=== PATIENT | female | born 1980 | race Caucasian/White ===

== ENCOUNTER → 2020-06-04 | Outpatient (CLI) | payer BC | LOC: OD 15:37 | PROVIDERS: ATTEND Radiology Radiation Oncology | DX: C50.811 Malignant neoplasm of overlapping sites of right female breast (principal) | CPT/HCPCS: 36415; 84703 ==

== ENCOUNTER → 2020-06-05 | Outpatient (CLI) | payer BC ==
--- NOTE | 2020-06-06 15:09 | XCELERA REPORT ---
[address] [address] Transthoracic Echocardiogram Report Name: DONNA WERNER Age: 40 yrs Gender: Female : 1980 Patient Status: Outpatient Patient Location: RAD Study Date: 06/05/2020 01:43 PM Height: 66 in Weight: 160 lb BSA: 1.8 m2 Procedure: A two-dimensional transthoracic echocardiogram with color flow and Doppler was performed. Study Quality: Good. Reason For Study: CHEMOTHERAPY(Z51.11) History: CHEMOTHERAPY(Z51.11). Ordering Physician: TOMA YU Performed By: Sherry Lozano Interpretation Summary The left ventricle is normal in size. There is normal left ventricular wall thickness. LV EF is > than 60% Left ventricular systolic function is normal. Doppler measurements suggest normal left ventricular diastolic function The left ventricular wall motion is normal. There is no thrombus. No ASD , VSD , or PFO. The right ventricle is normal in size and function. The right atrium is normal. The left atrial size is normal. There is no evidence of mitral valve prolapse. There is no vegetation seen on the mitral valve. There is no mitral valve stenosis. There is a trace amount of mitral regurgitation There is no aortic valvular vegetation. There is no aortic valve stenosis There is no LVOT obstruction. No aortic regurgitation is present. There is no tricuspid stenosis. There is a trace amount of tricuspid regurgitation Right ventricular systolic pressure is at the upper limits of normal RVSP is 25 to 30 mm of Hg , with RA mean of 5 to 10. There is no pulmonic valvular stenosis. There is no pulmonic valvular regurgitation. The aortic root is normal size. The inferior vena cava appeared normal and decreased > 50% with respiration (RAP 5-10 mmHg) There is no pericardial effusion. MMode/2D Measurements & Calculations RVDd: 2.2 cm LVIDd: 4.6 cm FS: 32.5 % Ao root diam: 2.4 cm IVSd: 0.89 cm LVIDs: 3.1 cm EDV(Teich): 95.4 ml Ao root area: 4.5 cm2 LVPWd: 1.1 cm ESV(Teich): 37.2 ml EF(Teich): 61.0 % Doppler Measurements & Calculations MV E max agusto: MV dec slope: Ao V2 max: LV V1 max P.4 cm/sec 769.9 cm/sec2 135.6 cm/sec 3.4 mmHg MV A max agusto: MV dec time: 0.12 secAo max PG: LV V1 max: 86.5 cm/sec 7.4 mmHg 91.7 cm/sec MV E/A: 1.1 PA V2 max: TR max agusto: 75.2 cm/sec 226.4 cm/sec PA max P.3 mmHg TR max P.6 mmHg Left Ventricle The left ventricle is normal in size. There is normal left ventricular wall thickness. LV EF is > than 60%. Left ventricular systolic function is normal. Doppler measurements suggest normal left ventricular diastolic function. The left ventricular wall motion is normal. There is no thrombus. No ASD , VSD , or PFO. Right Ventricle The right ventricle is normal in size and function. Atria The right atrium is normal. The left atrial size is normal. Mitral Valve There is no evidence of mitral valve prolapse. There is no vegetation seen on the mitral valve. There is no mitral valve stenosis. There is a trace amount of mitral regurgitation. Aortic Valve There is no aortic valvular vegetation. There is no aortic valve stenosis. There is no LVOT obstruction. No aortic regurgitation is present. Tricuspid Valve There is no tricuspid stenosis. There is a trace amount of tricuspid regurgitation. Right ventricular systolic pressure is at the upper limits of normal. RVSP is 25 to 30 mm of Hg , with RA mean of 5 to 10. Pulmonic Valve There is no pulmonic valvular stenosis. There is no pulmonic valvular regurgitation. Great Vessels The aortic root is normal size. The inferior vena cava appeared normal and decreased > 50% with respiration (RAP 5-10 mmHg). Effusions There is no pericardial effusion. : TOMA YU, Kimberly
== END ==
LOC: EDBD → RAD 14:15
PROVIDERS: ATTEND Physician Assistant Medical
DX: Z08 Encounter for follow-up examination after completed treatment for malignant neoplasm (principal); C50.411 Malignant neoplasm of upper-outer quadrant of right female breast; Z79.899 Other long term (current) drug therapy
CPT/HCPCS: 93306

== ENCOUNTER → 2020-07-25 | Outpatient (CLI) | payer BC ==
--- NOTE | 2020-07-25 11:19 | WOMENS IMAGING REPORT ---
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 True lateral exaggerated CC views. Read with the assistance of CAD. .[facility] - R2 Photo Engraver Version 9.2 LIMITATIONS: None. FINDINGS: BREAST LATERALITY: left MASSES: No suspicious masses. CALCIFICATIONS: No new or suspicious calcifications. ARCHITECTURAL DISTORTION: None. ASYMMETRY: None noted. OTHER: No other significant findings. Ultrasound of the left breast was normal. IMPRESSION: No evidence of malignancy. BREAST DENSITY: b. There are scattered areas of fibroglandular density. BIRAD: ASSESSMENT: 1 Negative. RECOMMENDATION: RECOMMENDED FOLLOW UP: Birads 1 or 2: No breast imaging finding to explain the patie nt's presenting complaint. Further intervention should be based on the degree of clinical suspicion. SPECIFIC INTERVENTION/IMAGING/CONSULTATION RECOMMENDED:No additional intervention/ imaging/consultati on needed at this time. COMMUNICATION:The imaging findings were not discussed with the patient. Her referring provider has be en notified of the findings. COMMENT: The patient has been notified of the results by letter per SA requirements. Additional no tification policies are in place for contacting patient with suspicious or incomplete findings. Quality ID #225: The [employer] recommends an annual screening mammogram for women aged 40 years or over. This facility utilizes a reminder system to ensure that all patients receive reminder letters, and/or direct phone calls for appointments. This includes reminders for routine scr eening mammograms, diagnostic mammograms, or other Breast Imaging Interventions when appropriate. Th is patient will be placed in the appropriate reminder system. TECHNICAL DOCUMENTATION: FINDING NUMBER: (1) ASSESSMENT: (1) JOB ID: [id number] 2010 [employer]- All Rights Reserved Reading location - IP/workstation name: [email or web address]
--- NOTE | 2020-07-25 11:19 | WOMENS IMAGING REPORT ---
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 True lateral exaggerated CC views. Read with the assistance of CAD. .[facility] - R2 Figurine Maker Version 9.2 LIMITATIONS: None. FINDINGS: BREAST LATERALITY: left MASSES: No suspicious masses. CALCIFICATIONS: No new or suspicious calcifications. ARCHITECTURAL DISTORTION: None. ASYMMETRY: None noted. OTHER: No other significant findings. Ultrasound of the left breast was normal. IMPRESSION: No evidence of malignancy. BREAST DENSITY: b. There are scattered areas of fibroglandular density. BIRAD: ASSESSMENT: 1 Negative. RECOMMENDATION: RECOMMENDED FOLLOW UP: Birads 1 or 2: No breast imaging finding to explain the patie nt's presenting complaint. Further intervention should be based on the degree of clinical suspicion. SPECIFIC INTERVENTION/IMAGING/CONSULTATION RECOMMENDED:No additional intervention/ imaging/consultati on needed at this time. COMMUNICATION:The imaging findings were not discussed with the patient. Her referring provider has be en notified of the findings. COMMENT: The patient has been notified of the results by letter per SA requirements. Additional no tification policies are in place for contacting patient with suspicious or incomplete findings. Quality ID #225: The [employer] recommends an annual screening mammogram for women aged 40 years or over. This facility utilizes a reminder system to ensure that all patients receive reminder letters, and/or direct phone calls for appointments. This includes reminders for routine scr eening mammograms, diagnostic mammograms, or other Breast Imaging Interventions when appropriate. Th is patient will be placed in the appropriate reminder system. TECHNICAL DOCUMENTATION: FINDING NUMBER: (1) ASSESSMENT: (1) JOB ID: [id number] 2010 [employer]- All Rights Reserved Reading location - IP/workstation name: [email or web address]
--- OUTSIDE RECORDS SUMMARY | 2020-07-26 15:15 | XMS REPORT ---
:1980 [facility] [place] [facility] [place] [address] [place] [address] Care Team Providers Name Role Phone MIRZA FLOR Primary Care Physician Unavailable Eli Shoemaker Attending Clinician Unavailable RIAZ Attending Clinician Unavailable LULÚ HERNANDEZ Attending Clinician Unavailable BELEN MCCOLLUM Attending Clinician Unavailable LULÚ HERNANDEZ Attending Clinician Unavailable BELEN MCCOLLUM Attending Clinician Unavailable Allergies, Adverse Reactions, Alerts Allergy Name Allergy Status Severity Reaction(s) Onset Inactive Treat ing Comments Type Date Date Clinician Adhesive Propensity Active Other (See R edness to adverse Comments) 8-14 and reactions 00:00: burnin g to drug 00 Cephalexin Propensity Active Swelling 0 to adverse 3-27 reactions 00:00: to drug 00 Erythromycin Propensity Active Mild Nausea And 0 to adverse Vomiting 4-10 reactions 00:00: to drug 00 Erythromycin Propensity Active Low Nausea And 2018-0 to adverse Vomiting 4-10 reactions 00:00: 00 Erythromycin Allergy to Active Nausea/Vomit Base Drug ing/Diarrhea (Ingredient( (Finding) s): erythromycin ) Medications Ordered Filled Start Stop Current Ordering Indication Dosage Frequency Signature Comments Components Medication Medication Date Date Medication? Clinician (SIG) Name Name Silvadene 2019-09 Yes 1 - 00:00: 00 Ondansetron 2019-09 No 8mg Ondansetro HCl 0-23 n HCl 00:00: 00 Ado-Trastuz 2019-09 No 254mg Ado-Trastu umab 0-23 zumab Emtansine 00:00: Emtansine 00 Feraheme 2019-09 No 510mg Feraheme 0-15 00:00: 00 Sodium 2019- No 20mL Sodium Chloride 0-15 Chloride 00:00: 00 Sodium 2019-1 No 50mL Sodium Chloride 0-08 Chloride 00:00: 00 Feraheme 2019-09 2020- No 510mg Feraheme 0-08 10-15 00:00: 00:00 00 :00 Ondansetron 2019- No 8mg Ondansetro HCl 0-02 n HCl 00:00: 00 Ado-Trastuz 2019-09 No 257mg Ado-Trastu umab 0-02 zumab Emtansine 00:00: Emtansine 00 Hydration 2019-09 2020- No 1000mL 1000mL NS 0-02 10- 00:00: 00:00 00 :00 Sodium 2019-0 No 150mL Sodium Chloride 9-11 Chloride 00:00: 00 Ado-Trastuz Yes 254mg Ado-Trastu umab 9-11 zumab Emtansine 00:00: Emtansine 00 Ondansetron 2020- No 8mg Ondansetro HCl 9-11 10- n HCl 00:00: 00:00 00 :00 sulfamethox 2020- No [id number] Q.5D Take 2 azole-trime 05-08 09-05 tablets thoprim 00:00: 23:59 (320 mg of (BACTRIM 00 :00 trimethopr DS) 800-160 im total) mg tablet by mouth 2 (two) times daily for 10 days Pertuzumab No 420mg Pertuzumab 05-01 00:00: 00 Sodium 2019-0 No 80mL Sodium Chloride 819 Chloride 00:00: 00 Kanjinti No 424mg Kanjinti 05-01 00:00: 00 nitroGLYcer 2019- No [id number] .5[in_u Q.5D Place 0 .5 in 04-27 08-22 s] inches (NITROBID) 00:00: 23:59 onto the 2 % 00 :00 skin 2 ointment (two) times daily for 7 days Apply to the mastectomy skin twice daily mupirocin 2019- No Q.5D Apply (BACTROBAN) 04-26 08-21 topically 2 % 00:00: 23:59 2 (two) ointment 00 :00 times daily for 7 days Apply to incision and drain site twice daily nitroGLYcer 2019- No [id number] .5[in_u Q.5D Place 0 .5 in 8-14 08-15 s] inches (NITROBID) 00:00: 00:00 onto the 2 % 00 :00 skin 2 ointment (two) times daily for 7 days Apply to the mastectomy skin twice daily oxyCODONE 2019-0 2020- No 5mg Q6H Take 1 (ROXICODONE 04-24 tablet (5 ) 5 MG 00:00: 00:00 mg total) immediate 00 :00 by mouth release every 6 tablet (six) hours as needed for Pain for up to 30 doses acetaminoph 2019- 2020- No 650mg Q8H Take 1 en 04-24 tablet (TYLENOL) 00:00: 23:59 (650 mg 650 MG ER 00 :00 total) by tablet mouth every 8 (eight) hours as needed for Pain for up to 10 days ondansetron 2020- No 4mg Q8H Take 1 (ZOFRAN-ODT 04-24 tablet (4 ) 4 MG 00:00: 23:59 mg total) disintegrat 00 :00 by mouth ing tablet every 8 (eight) hours as needed for Nausea for up to 7 days ondansetron 0 2020- No 4mg Q6H Take 1 (ZOFRAN 04-23 tablet (4 ODT) 4 MG 00:00: 00:00 mg total) disintegrat 00 :00 by mouth ing tablet every 6 (six) hours as needed for Nausea oxyCODONE 2020- No 5mg Q4H Take 1 (ROXICODONE 04-23 tablet (5 ) 5 MG 00:00: 00:00 mg total) immediate 00 :00 by mouth release every 4 tablet (four) hours as needed for Pain docusate 2019-0 2020- No 100mg Q.5D Take 1 (COLACE) 04-23 capsule 100 MG 00:00: 23:59 (100 mg capsule 00 :00 total) by mouth 2 (two) times daily for 10 days LORazepam 2020-0 2020- No .5mg Q.[id number] Take 1 (ATIVAN) 04-23 [id number] tablet 0.5 MG 00:00: 23:59 3D (0.5 mg tablet 00 :00 total) by mouth 3 (three) times daily as needed for up to 5 days penicillin 2020-0 2020- No 500mg Q6H Take 500 v potassium 7-27 08-06 mg by 500 MG 00:00: 23:59 mouth tablet 00 :00 every 6 (six) hours For 10 days Pertuzumab 2020-0 No 420mg Pertuzumab 7-13 00:00: 00 Sodium 2020-0 No 120mL Sodium Chloride 7-13 Chloride 00:00: 00 Kanjinti 2020-0 No 416mg Kanjinti 7-13 00:00: 00 Palonosetro 2020-0 No .25mg Palonosetr n HCl 7-13 on HCl 00:00: 00 Dexamethaso 2020-0 No 20mg Dexamethas ne Sodium 7-13 one Sodium Phosphate 00:00: Phosphate 00 Famotidine 2020-0 No 20mg Famotidine 7-13 00:00: 00 CARBOplatin 2020-0 No 750mg CARBOplati 7-13 n 00:00: 00 Pertuzumab 2020-0 No 420mg Pertuzumab 6-22 00:00: 00 Sodium 2020-0 No 120mL Sodium Chloride 6-22 Chloride 00:00: 00 Kanjinti 2020-0 No 417mg Kanjinti 6-22 00:00: 00 Palonosetro 2020-0 No .25mg Palonosetr n HCl 6-22 on HCl 00:00: 00 Dexamethaso 2020-0 No 20mg Dexamethas ne Sodium 6-22 one Sodium Phosphate 00:00: Phosphate 00 Famotidine 2020-0 No 20mg Famotidine 6-22 00:00: 00 CARBOplatin 2020-0 No 750mg CARBOplati 6-22 n 00:00: 00 Pertuzumab 2020-0 No 420mg Pertuzumab 6-01 00:00: 00 Sodium 2020-0 No 120mL Sodium Chloride 6-01 Chloride 00:00: 00 Kanjinti 2020-0 No 411mg Kanjinti 6-01 00:00: 00 Palonosetro 2020-0 No .25mg Palonosetr n HCl 6-01 on HCl 00:00: 00 Dexamethaso 2020-0 No 20mg Dexamethas ne Sodium 6-01 one Sodium Phosphate 00:00: Phosphate 00 Famotidine 2020-0 No 20mg Famotidine 6-01 00:00: 00 CARBOplatin 2020-0 No 701mg CARBOplati 6-01 n 00:00: 00 ALPRAZolam 2020-0 Yes 1 6-01 00:00: 00 dexAMETHaso 2020-0 2020- No ne 5-29 - (DECADRON) 00:00: 00:00 4 MG tablet 00 :00 Diflucan 2020-0 2020- No 1 5-08 06-22 00:00: 09:29 00 :50 Pertuzumab 2020-0 No 420mg Pertuzumab 5-04 00:00: 00 Sodium 2020-0 No 120mL Sodium Chloride 5-04 Chloride 00:00: 00 Kanjinti 2020-0 No 409mg Kanjinti 5-04 00:00: 00 Palonosetro 2020-0 No .25mg Palonosetr n HCl 5-04 on HCl 00:00: 00 Dexamethaso 2020-0 No 20mg Dexamethas ne Sodium 5-04 one Sodium Phosphate 00:00: Phosphate 00 Famotidine 2020-0 No 20mg Famotidine 5-04 00:00: 00 CARBOplatin 2020-0 No 750mg CARBOplati 5-04 n 00:00: 00 Potassium 2020-0 2020- No 20meq Chloride ER 5-04 09-02 00:00: 00:00 00 :00 Pertuzumab 2020-0 No 420mg Pertuzumab 4-13 00:00: 00 Sodium 2020-0 No 120mL Sodium Chloride 4-13 Chloride 00:00: 00 Kanjinti 2020-0 No 405mg Kanjinti 4-13 00:00: 00 Palonosetro 2020-0 No .25mg Palonosetr n HCl 4-13 on HCl 00:00: 00 Dexamethaso 2020-0 No 20mg Dexamethas ne Sodium 4-13 one Sodium Phosphate 00:00: Phosphate 00 Famotidine 2020-0 No 20mg Famotidine 4-13 00:00: 00 CARBOplatin 2020-0 No 750mg CARBOplati 4-13 n 00:00: 00 Magic 2020-0 2020- No 10mL Mouthwash -02 - 00:00: 00:00 00 :00 Dexamethaso 2020-0 2020- No ne 4-02 - 00:00: 08:57 00 :16 Sodium 2020-0 Yes 20mL Sodium Chloride 3-23 Chloride 00:00: 00 Kanjinti 2020-0 2020- No 540mg Kanjinti 3-23 08-19 00:00: 00:00 00 :00 Pertuzumab 2019-0 2020- No 840mg Pertuzumab 12-03 00:00: 00:00 00 :00 Sodium 2019-0 2019- No 80mL Chloride 12-03 00:00: 00:00 00 :00 Dexamethaso 2019-0 2020- No 20mg Dexamethas ne Sodium 12-03 one Sodium Phosphate 00:00: 00:00 Phosphate 00 :00 DiphenhydrA 2019-0 2019- No 50mg MINE HCl 12-03 00:00: 00:00 00 :00 Famotidine 2019-0 2019- No 20mg Famotidine 12-03 00:00: 00:00 00 :00 Palonosetro 2019-0 2020- No .25mg Palonosetr n HCl 12-03 on HCl 00:00: 00:00 00 :00 CARBOplatin 2019-0 2019- No 750mg CARBOplati 12-03 n 00:00: 00:00 00 :00 Docetaxel 2019-0 2019- No 134mg 12-03 00:00: 00:00 00 :00 Ondansetron 0 Yes 1 HCl 3- 00:00: 00 Promethazin Yes 25mg e HCl 3-10 00:00: 00 ALPRAZolam 2017- Yes .5MG Take 0.5 Take 0.5 (XANAX) 0.5 2-12 mg by mg by MG tablet 10:57: mouth mouth 51 Three (3) Three (3) times a times a day. day. potassium Yes Take by chloride mouth (KLOR-CON) 10 MEQ ER tablet sertraline Yes 150mg QD Take 150 (ZOLOFT) mg by 100 MG mouth once tablet daily omeprazole Yes 40mg QD Take 40 mg (PRILOSEC) by mouth [address] once daily capsule pediatric Yes 1{tbl} QD Take 1 multivitami tablet by n mouth once (FLINTSTONE daily S/EXTRA C) chewable tablet ALPRAZolam Yes .5mg Take 0.5 (XANAX) 0.5 mg by MG tablet mouth 3 (three) times a day VITAMIN D3 Yes 5000U QD Take 5,000 ORAL Units by mouth once daily cetirizine Yes 10mg QD Take 10 mg (ZYRTEC) 10 by mouth MG tablet once daily fluticasone Yes 2{spray QD Place 2 propionate } sprays (FLONASE) into both 50 nostrils mcg/actuati once daily on nasal spray Multivitami Yes 1 ns PriLOSEC Yes 1 Zoloft Yes 1 Zyrtec No 1 Claritin Yes 1 Zyrtec 2020- No 1 07-05 09:53 :52 ascorbic 2020- No 3{capsu QD Take 3 acid/vitami 05-17 le} capsules n E/biotin 00:00 by mouth (HAIR, :00 once daily SKIN, NAILS WITH BIOTIN ORAL) fexofenadin 2020- No 180mg QD Take 180 e (PEYTON) 07-27 mg by 180 MG 00:00 mouth once tablet :00 daily cetirizine 2019- No Take by HCl/pseudoe 04-08 mouth phedrine 00:00 (ZYRTEC-D :00 ORAL) POTASSIUM 2019- No Take by CHLORIDE 04-08 mouth ORAL 00:00 :00 Peyton 2020- No 1 Allergy 03-04 09:31 :12 predniSONE 2020- No 3 03-04 09:24 :51 Problems Condition Condition Condition Status Onset Resolution Last Treatin g Comments Name Details Category Date Date Treatment Clinician Date Dehydration Dehydration Diagnosis active 2019-09 00:00: 00 Breast Breast [id number] Active 2020-05-30 hematoma hematoma 05-04 12:06:30 00:00: 00 S/P right S/P right [id number] Active 2020-04-26 mastectomy mastectomy 04-26 17:34:00 00:00: 00 Patient Patient Diagnosis active encounter encounter 12-03 status status 00:00: 00 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 Active 2019-11-24 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 14: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-outer 00:00: quadrant of quadrant of 00 right right breast in breast in female, female, estrogen estrogen receptor receptor positive positive Anxiety Anxiety [id number] Active 2017-092020-02-20 2- 12:26:54 00:00: 00 Heart Heart [id number] Active 2017-092020-02-20 palpitation palpitation 10-25 12:26:54 s s 00:00: 00 Gastroesoph Gastroesoph [id number] Active 2020-02-20 ageal ageal 4-10 12:26:54 reflux reflux 00:00: disease disease 00 without without esophagitis esophagitis Snoring Snoring [id number] Active 2020-02-20-10 12:26:54 00:00: 00 Eruption Eruption Diagnosis active due to drug due to drug 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 Drug-induce Drug-induce Diagnosis active d mucositis d mucositis 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 Iron Iron Diagnosis active deficiency deficiency anemia anemia Procedures Procedure Date / Time Performed Performing Clinician Devimagnolia e CORONAVIRUS (COVID-19) SARS-COV-2 2020-04-22 10:30:00 Sydnee Sanford PCR PREOPERATIVE SCREEN BASIC METABOLIC PANEL (BMP) 2020-04-09 11:14:00 Sherry Sanford ndsean COMPLETE BLOOD COUNT (CBC) 2020-04-09 11:14:00 Sherry Sanford dace breast biopsy 2019-11-07 00:00:00 Oral surgery Thyroid Biopsy caesarean section Results Test Description Test Time Test Comments Text Results Atomic Results Result Comments FSH 2020-07-19 11:30:00 Test Item Value Reference Range Comments FSH (test code = FSH) 11.8000 1.5000-116.3000 LH (test code = LH) 8.7000 0.5000-76.3000 Estradiol (test code = Estradiol) 165.0000 pg/mL [id number] 10:14:00 Test Item Value Reference Range Comments WBC (test code = WBC) 3.0000 4.0000-10.0000 Lymphocytes % (test code = Lymphocytes %) 19.4000 % 22.400 0-43.6000 MID% (test code = MID%) 6.7000 % 1.2000-11.2000 Neutrophils % (test code = Neutrophils %) 73.9000 % 48.900 0-69.9000 Lymphocytes (test code = Lymphocytes) 0.5000 1.2000-3.2 000 MID (test code = MID) 0.3000 0.1000-1.1000 Neutrophils (test code = Neutrophils) 2.2000 1.5000-6.7 000 RBC (test code = RBC) 3.3400 3.7000-4.9000 HGB (test code = HGB) 11.5000 g/dL 11.2000-18.0000 HCT (test code = HCT) 33.6000 % 34.0000-44.0000 MCV (test code = MCV) 100.6000 fL 80.0000-94.0000 MCH (test code = MCH) 34.6000 pg 27.0000-34.0000 MCHC (test code = MCHC) 34.3000 g/dL 31.5000-36.0000 RDW (test code = RDW) 14.6000 11.0000-18.0000 PLT (test code = PLT) 171.0000 140.0000-440.0000 MPV (test code = MPV) 7.8000 fL 6.8000-10.6000 [id number] 09:29:00 Test Item Value Reference Range Comments WBC (test code = WBC) 2.5000 4.0000-10.0000 Lymphocytes % (test code = Lymphocytes %) 23.3000 % 22.400 0-43.6000 MID% (test code = MID%) 7.1000 % 1.2000-11.2000 Neutrophils % (test code = Neutrophils %) 69.6000 % 48.900 0-69.9000 Lymphocytes (test code = Lymphocytes) 0.5000 1.2000-3.2 000 MID (test code = MID) 0.3000 0.1000-1.1000 Neutrophils (test code = Neutrophils) 1.7000 1.5000-6.7 000 RBC (test code = RBC) 3.2000 3.7000-4.9000 HGB (test code = HGB) 10.9000 g/dL 11.2000-18.0000 HCT (test code = HCT) 32.1000 % 34.0000-44.0000 MCV (test code = MCV) 100.1000 fL 80.0000-94.0000 MCH (test code = MCH) 34.1000 pg 27.0000-34.0000 MCHC (test code = MCHC) 34.0000 g/dL 31.5000-36.0000 RDW (test code = RDW) 14.8000 11.0000-18.0000 PLT (test code = PLT) 126.0000 140.0000-440.0000 MPV (test code = MPV) 8.5000 fL 6.8000-10.6000 [id number] 09:26:00 Test Item Value Reference Range Comments WBC (test code = WBC) 3.0000 4.0000-10.0000 Lymphocytes % (test code = Lymphocytes %) 29.6000 % 22.400 0-43.6000 MID% (test code = MID%) 7.1000 % .1999- Neutrophils % (test code = Neutrophils %) 63.3000 % 48.900 0-69.9000 Lymphocytes (test code = Lymphocytes) 0.9000 1.2000-3.2 000 MID (test code = MID) 0.2000 0.1000-1.1000 Neutrophils (test code = Neutrophils) 1.9000 1.5000-6.7 000 RBC (test code = RBC) 3.5100 3.7000-4.9000 HGB (test code = HGB) 12.1000 g/dL 11.1999-18.0000 HCT (test code = HCT) 34.5000 % 34.0000-44.0000 MCV (test code = MCV) 98.3000 fL 80.0000-94.0000 MCH (test code = MCH) 34.5000 pg 27.0000-34.0000 MCHC (test code = MCHC) 35.1000 g/dL 31.5000-36.0000 RDW (test code = RDW) 14.0000 11.0000-18.0000 PLT (test code = PLT) 109.0000 140.0000-440.0000 MPV (test code = MPV) 8.4000 fL 6.8000-10.6000 [id number] 09:36:00 Test Item Value Reference Range Comments WBC (test code = WBC) 4.2000 4.0000-10.0000 Lymphocytes % (test code = Lymphocytes %) 26.0000 % 22.400 0-43.6000 MID% (test code = MID%) 7.3000 % .1999- Neutrophils % (test code = Neutrophils %) 66.7000 % 48.900 0-69.9000 Lymphocytes (test code = Lymphocytes) 1.1000 1.2000-3.2 000 MID (test code = MID) 0.3000 0.1000-1.1000 Neutrophils (test code = Neutrophils) 2.8000 1.5000-6.7 000 RBC (test code = RBC) 3.7200 3.7000-4.9000 HGB (test code = HGB) 12.4000 g/dL 11.2000-18.0000 HCT (test code = HCT) 37.1000 % 34.0000-44.0000 MCV (test code = MCV) 99.5000 fL 80.0000-94.0000 MCH (test code = MCH) 33.3000 pg 27.0000-34.0000 MCHC (test code = MCHC) 33.4000 g/dL 31.5000-36.0000 RDW (test code = RDW) 14.7000 11.0000-18.0000 PLT (test code = PLT) 270.0000 140.0000-440.0000 MPV (test code = MPV) 8.4000 fL 6.8000-10.6000 [id number] 09:36:00 Test Item Value Reference Range Comments Creatinine (test code = Creatinine) 0.6000 mg/dL 0.5000-1.200 0 Cr Clearance (Est) (test code = Cr 139.7200 75.0000-115.0 000 Clearance (Est)) Glucose (test code = Glucose) 89.0000 mg/dL 70.0000-118.0000 BUN (test code = BUN) 18.0000 mg/dL 7.0000-22.0000 Sodium (test code = Sodium) 137.0000 mmol/L 128.0000-145.0000 Potassium (test code = Potassium) 3.8000 mmol/L 3.6000-5.1000 Chloride (test code = Chloride) 102.0000 mmol/L 96.0000-108.0000 CO2 (test code = CO2) 29.0000 mmol/L 18.0000-33.0000 Calcium (test code = Calcium) 9.1600 mg/dL 8.0000-10.3000 Alkaline Phosphatase (test code = Alkaline 56.0000 42.00 00-141.0000 Phosphatase) ALT (SGPT) (test code = ALT (SGPT)) 17.0000 10.0000-47.0 000 AST (SGOT) (test code = AST (SGOT)) 22.0000 11.0000-37.0 000 Bilirubin, Total (test code = Bilirubin, 0.5000 mg/dL 0.0000- 1.6000 Total) Albumin (test code = Albumin) 4.4000 g/dL 3.5000-5.5000 Protein, Total (test code = Protein, 6.4000 g/dL 6.4000-8.10 00 Total) eGFR -Stateless (test code = eGFR 135.0000 60.0000- 200.0000 -Stateless) eGFR Ihj-Jzbteti-Phbikxvh (test code = 111.0000 60.0000-2 00.0000 eGFR Pzb-Qlbjhyr-Dnzmgigw) [id number] 08:28:00 Test Item Value Reference Range Comments WBC (test code = WBC) 5.2000 4.0000-10.0000 Lymphocytes % (test code = Lymphocytes %) 35.0000 % 22.400 0-43.6000 MID% (test code = MID%) 7.5000 % 1.1999-11.1999 Neutrophils % (test code = Neutrophils %) 57.5000 % 48.900 0-69.9000 Lymphocytes (test code = Lymphocytes) 1.8000 1.2000-3.2 000 MID (test code = MID) 0.4000 0.1000-1.1000 Neutrophils (test code = Neutrophils) 3.0000 1.5000-6.7 000 RBC (test code = RBC) 3.2400 3.7000-4.9000 HGB (test code = HGB) 11.1000 g/dL 11.2000-18.0000 HCT (test code = HCT) 32.8000 % 34.0000-44.0000 MCV (test code = MCV) 101.3000 fL 80.0000-94.0000 MCH (test code = MCH) 34.4000 pg 27.0000-34.0000 MCHC (test code = MCHC) 34.0000 g/dL 31.5000-36.0000 RDW (test code = RDW) 14.4000 11.0000-18.0000 PLT (test code = PLT) 197.0000 140.0000-440.0000 MPV (test code = MPV) 9.1000 fL 6.8000-10.6000 [id number] 08:33:00 Test Item Value Reference Range Comments WBC (test code = WBC) 4.9000 4.0000-10.0000 Lymphocytes % (test code = Lymphocytes %) 39.4000 % 22.400 0-43.6000 MID% (test code = MID%) 8.0000 % .1999-11.1999 Neutrophils % (test code = Neutrophils %) 52.6000 % 48.900 0-69.9000 Lymphocytes (test code = Lymphocytes) 1.9000 1.2000-3.2 000 MID (test code = MID) 0.5000 0.1000-1.1000 Neutrophils (test code = Neutrophils) 2.5000 1.5000-6.7 000 RBC (test code = RBC) 3.3900 3.7000-4.9000 HGB (test code = HGB) 11.9000 g/dL 11.2000-18.0000 HCT (test code = HCT) 34.2000 % 34.0000-44.0000 MCV (test code = MCV) 101.0000 fL 80.0000-94.0000 MCH (test code = MCH) 35.1000 pg 27.0000-34.0000 MCHC (test code = MCHC) 34.7000 g/dL 31.5000-36.0000 RDW (test code = RDW) 14.4000 11.0000-18.0000 PLT (test code = PLT) 184.0000 140.0000-440.0000 MPV (test code = MPV) 8.1000 fL 6.8000-10.6000 [id number] 10:09:00 Test Item Value Reference Range Comments Creatinine (test code = Creatinine) 0.8000 mg/dL 0.5000-1.200 0 Cr Clearance (Est) (test code = Cr 106.1400 75.0000-115.0 000 Clearance (Est)) Glucose (test code = Glucose) 88.0000 mg/dL 70.0000-118.0000 BUN (test code = BUN) 19.0000 mg/dL 7.0000-22.0000 Sodium (test code = Sodium) 140.0000 mmol/L 128.0000-145.0000 Potassium (test code = Potassium) 3.8000 mmol/L 3.6000-5.1000 Chloride (test code = Chloride) 104.0000 mmol/L 96.0000-108.0000 CO2 (test code = CO2) 31.0000 mmol/L 18.0000-33.0000 Calcium (test code = Calcium) 9.6100 mg/dL 8.0000-10.3000 Alkaline Phosphatase (test code = Alkaline 66.0000 42.00 00-141.0000 Phosphatase) ALT (SGPT) (test code = ALT (SGPT)) 26.0000 10.0000-47.0 000 AST (SGOT) (test code = AST (SGOT)) 26.0000 11.0000-37.0 000 Bilirubin, Total (test code = Bilirubin, 0.8000 mg/dL 0.0000- 1.6000 Total) Albumin (test code = Albumin) 4.5000 g/dL 3.5000-5.5000 Protein, Total (test code = Protein, 6.9000 g/dL 6.4000-8.10 00 Total) eGFR -Stateless (test code = eGFR 97.0000 60.0000- 200.0000 -Stateless) eGFR Cih-Uitxhek-Kpkquafv (test code = 80.0000 60.0000-2 00.0000 eGFR Cso-Zyaumfr-Kgnsdhhi) [id number] 10:08:00 Test Item Value Reference Range Comments WBC (test code = WBC) 4.3000 4.0000-10.0000 Lymphocytes % (test code = Lymphocytes %) 43.3000 % 22.400 0-43.6000 MID% (test code = MID%) 7.3000 % 1.2000-11.1999 Neutrophils % (test code = Neutrophils %) 49.4000 % 48.900 0-69.9000 Lymphocytes (test code = Lymphocytes) 1.8000 1.2000-3.2 000 MID (test code = MID) 0.4000 0.1000-1.1000 Neutrophils (test code = Neutrophils) 2.1000 1.5000-6.7 000 RBC (test code = RBC) 3.3300 3.7000-4.9000 HGB (test code = HGB) 11.3000 g/dL 11.2000-18.0000 HCT (test code = HCT) 34.0000 % 34.0000-44.0000 MCV (test code = MCV) 102.1000 fL 80.0000-94.0000 MCH (test code = MCH) 34.1000 pg 27.0000-34.0000 MCHC (test code = MCHC) 33.4000 g/dL 31.5000-36.0000 RDW (test code = RDW) 14.6000 11.0000-18.0000 PLT (test code = PLT) 326.0000 140.0000-440.0000 MPV (test code = MPV) 7.9000 fL 6.8000-10.6000 [id number] 11:37:00 Test Item Value Reference Range Comments WBC (test code = WBC) 3.8000 4.0000-10.0000 Lymphocytes % (test code = Lymphocytes %) 41.4000 % 22.400 0-43.6000 MID% (test code = MID%) 7.2000 % 1.2000-11.1999 Neutrophils % (test code = Neutrophils %) 51.4000 % 48.900 0-69.9000 Lymphocytes (test code = Lymphocytes) 1.5000 1.2000-3.2 000 MID (test code = MID) 0.4000 0.1000-1.1000 Neutrophils (test code = Neutrophils) 1.9000 1.5000-6.7 000 RBC (test code = RBC) 3.0500 3.7000-4.9000 HGB (test code = HGB) 10.4000 g/dL 11.2000-18.0000 HCT (test code = HCT) 31.8000 % 34.0000-44.0000 MCV (test code = MCV) 104.3000 fL 80.0000-94.0000 MCH (test code = MCH) 34.4000 pg 27.0000-34.0000 MCHC (test code = MCHC) 32.9000 g/dL 31.5000-36.0000 RDW (test code = RDW) 14.4000 11.0000-18.0000 PLT (test code = PLT) 74.0000 140.0000-440.0000 MPV (test code = MPV) 9.5000 fL 6.8000-10.6000 Iron, [id number] 12:59:00 Test Item Value Reference Range Comments Iron, Total (test code = Iron, Total) 75.0000 27.0000-15 9.0000 TIBC (test code = TIBC) 347.0000 250.0000-450.0000 UIBC (test code = UIBC) 272.0000 131.0000-425.0000 % Iron Saturation (test code = % Iron 22.0000 % 15.0000-55 .0000 Saturation) Ferritin (test code = Ferritin) 54.0000 ng/mL 15.0000-150.0000 [id number] 11:04:00 Test Item Value Reference Range Comments WBC (test code = WBC) 3.8000 4.0000-10.0000 Lymphocytes % (test code = Lymphocytes %) 28.3000 % 22.400 0-43.6000 MID% (test code = MID%) 8.4000 % 1.2000-11.1999 Neutrophils % (test code = Neutrophils %) 63.3000 % 48.900 0-69.9000 Lymphocytes (test code = Lymphocytes) 1.1000 1.2000-3.2 000 MID (test code = MID) 0.3000 0.1000-1.1000 Neutrophils (test code = Neutrophils) 2.4000 1.5000-6.7 000 RBC (test code = RBC) 2.8300 3.7000-4.9000 HGB (test code = HGB) 10.3000 g/dL 11.2000-18.0000 HCT (test code = HCT) 30.0000 % 34.0000-44.0000 MCV (test code = MCV) 105.9000 fL 80.0000-94.0000 MCH (test code = MCH) 36.6000 pg 27.0000-34.0000 MCHC (test code = MCHC) 34.6000 g/dL 31.5000-36.0000 RDW (test code = RDW) 14.5000 11.0000-18.0000 PLT (test code = PLT) 315.0000 140.0000-440.0000 MPV (test code = MPV) 7.5000 fL 6.8000-10.6000 [id number] 11:04:00 Test Item Value Reference Range Comments Creatinine (test code = Creatinine) 0.7000 mg/dL 0.5000-1.200 0 Cr Clearance (Est) (test code = Cr 123.1600 75.0000-115.0 000 Clearance (Est)) Glucose (test code = Glucose) 102.0000 mg/dL 70.0000-118.0000 BUN (test code = BUN) 11.0000 mg/dL 7.0000-22.0000 Sodium (test code = Sodium) 141.0000 mmol/L 128.0000-145.0000 Potassium (test code = Potassium) 3.8000 mmol/L 3.6000-5.1000 Chloride (test code = Chloride) 107.0000 mmol/L 96.0000-108.0000 CO2 (test code = CO2) 32.0000 mmol/L 18.0000-33.0000 Calcium (test code = Calcium) 9.3800 mg/dL 8.0000-10.3000 Alkaline Phosphatase (test code = Alkaline 59.0000 42.00 00-141.0000 Phosphatase) ALT (SGPT) (test code = ALT (SGPT)) 9.0000 10.0000-47.0 000 AST (SGOT) (test code = AST (SGOT)) 12.0000 11.0000-37.0 000 Bilirubin, Total (test code = Bilirubin, 0.6000 mg/dL 0.0000- 1.6000 Total) Albumin (test code = Albumin) 4.0000 g/dL 3.5000-5.5000 Protein, Total (test code = Protein, 6.1000 g/dL 6.4000-8.10 00 Total) eGFR -Stateless (test code = eGFR 113.0000 60.0000- 200.0000 -Stateless) eGFR Wjy-Oesmuyi-Swvwsxlc (test code = 94.0000 60.0000-2 00.0000 eGFR Jnz-Lgfoprg-Jaocdbgj) [id number] 10:59:00 Test Item Value Reference Range Comments WBC (test code = WBC) 4.2000 4.0000-10.0000 Lymphocytes % (test code = Lymphocytes %) 34.2000 % 22.400 0-43.6000 MID% (test code = MID%) 7.6000 % 1.2000-11.2000 Neutrophils % (test code = Neutrophils %) 58.2000 % 48.900 0-69.9000 Lymphocytes (test code = Lymphocytes) 1.4000 1.2000-3.2 000 MID (test code = MID) 0.4000 0.1000-1.1000 Neutrophils (test code = Neutrophils) 2.4000 1.5000-6.7 000 RBC (test code = RBC) 2.9400 3.7000-4.9000 HGB (test code = HGB) 10.7000 g/dL 11.2000-18.0000 HCT (test code = HCT) 31.8000 % 34.0000-44.0000 MCV (test code = MCV) 108.2000 fL 80.0000-94.0000 MCH (test code = MCH) 36.3000 pg 27.0000-34.0000 MCHC (test code = MCHC) 33.5000 g/dL 31.5000-36.0000 RDW (test code = RDW) 15.8000 11.0000-18.0000 PLT (test code = PLT) 361.0000 140.0000-440.0000 MPV (test code = MPV) 7.3000 fL 6.8000-10.6000 [id number] 10:59:00 Test Item Value Reference Range Comments Creatinine (test code = Creatinine) 0.6000 mg/dL 0.5000-1.200 0 Cr Clearance (Est) (test code = Cr 140.2600 75.0000-115.0 000 Clearance (Est)) Glucose (test code = Glucose) 122.0000 mg/dL 70.0000-118.0000 BUN (test code = BUN) 12.0000 mg/dL 7.0000-22.0000 Sodium (test code = Sodium) 140.0000 mmol/L 128.0000-145.0000 Potassium (test code = Potassium) 3.2000 mmol/L 3.6000-5.1000 Chloride (test code = Chloride) 103.0000 mmol/L 96.0000-108.0000 CO2 (test code = CO2) 23.0000 mmol/L 18.0000-33.0000 Calcium (test code = Calcium) 8.9500 mg/dL 8.0000-10.3000 Alkaline Phosphatase (test code = Alkaline 60.0000 42.00 00-141.0000 Phosphatase) ALT (SGPT) (test code = ALT (SGPT)) 28.0000 10.0000-47.0 000 AST (SGOT) (test code = AST (SGOT)) 24.0000 11.0000-37.0 000 Bilirubin, Total (test code = Bilirubin, 0.7000 mg/dL 0.0000- 1.6000 Total) Albumin (test code = Albumin) 4.0000 g/dL 3.5000-5.5000 Protein, Total (test code = Protein, 6.0000 g/dL 6.4000-8.10 00 Total) eGFR -Stateless (test code = eGFR 135.0000 60.0000- 200.0000 -Stateless) eGFR Ogr-Amzuifv-Hytvjggi (test code = 111.0000 60.0000-2 00.0000 eGFR Eqs-Nvcjlsr-Aciitxbd) CORONAVIRUS (COVID-19) SARS-COV-2 PCR PREOPERATIVE [id number] 01:20:00 Test Item Value Reference Range Comments Coronavirus (COVID-19) SARS-CoV-2 PCR (test Not Detected code = 52900-8) CRYSTAL (test code = CRYSTAL) Lab Interpretation (test code = 65442-0) Normal CORONAVIRUS (COVID-19) SARS-COV-2 PCR PREOPERATIVE [id number] 01:20:00 Test Item Value Reference Range Comments Coronavirus (COVID-19) SARS-CoV-2 PCR (test Not Detected code = 20214-8) CRYSTAL (test code = CRYSTAL) Lab Interpretation (test code = 80943-6) Normal Basic Metabolic Panel (BMP)2020-04-09 15:10:00 Test Item Value Reference Range Comments Sodium (test code = 2951-2) 142 mmol/L 135-145 Potassium (test code = 2823-3) 3.1 mmol/L 3.5-5 Chloride (test code = 2075-0) 104 mmol/L 98-108 Carbon Dioxide (CO2) (test 24 mmol/L 21-30 code = 2027-9) Urea Nitrogen (BUN) (test code 6 mg/dL 7-20 = 3094-0) Creatinine (test code = 0.7 mg/dL 0.4-1 2160-0) Glucose (test code = 2345-7) 85 mg/dL 70-140 Int erpretive Data: Above is the NONFASTING r eference range. Below are the FASTING reference ranges : NORMAL: 70-99 mg/dL PREDIABETES: 100 -125 mg/dL DIABETES: > 125 mg/dL Calcium (test code = 54777-7) 9.3 mg/dL 8.7-10.2 Anion Gap (test code = 14 mmol/L 3-12 77192-0) BUN/CREA Ratio (test code = 9 03-09 75146849) Glomerular Filtration Rate 109 mL/min/1.73sq m Inter pretive Ranges eGFR (eGFR) (test code = 58200-1) (C KD-EPI): eGFR: > 60 mL/min/1.73 s q m - Normal eGFR: 30 - 59 mL/min/1.73 sq m - Moderately Decre ased eGFR: 15 - 29 mL/min/1.73 sq m - Severely Decreased eGFR: < 15 mL/min/1.73 sq m - Kidney Failure Note: Th lakshmi GFR calculations do not apply in acute situations when GFR is changing rapidly or in patients on dial ysis. Lab Interpretation (test code Abnormal = 72374-2) Complete Blood Count (CBC)2020-04-09 15:03:00 Test Item Value Reference Range Comments WBC (White Blood Cell Count) 2.5 3.2 - 9.8 x 10 9 (test code = 12597-0) /L Hemoglobin (test code = 10.1 g/dL 12-15.5 718-7) Hematocrit (test code = 30.0 % 35-45 4544-3) Platelets (test code = 260 150 - 450 x10 9 44564-7) /L MCV (Mean Corpuscular Volume) 114 fL 80-98 (test code = 787-2) MCH (Mean Corpuscular 38.3 pg 26.5-34 Hemoglobin) (test code = 785-6) MCHC (Mean Corpuscular 33.7 % 31.4-36 Hemoglobin Concentration) (test code = 786-4) RBC (Red Blood Cell Count) 2.64 3.77 - 5.16 x 10 1 (test code = 83441-3) 2/L RDW-CV (Red Cell Distribution 13.8 % 11.5-14.5 Width) (test code = 63954-8) NRBC (Nucleated Red Blood 0.03 0 x10 9 Cell Count) (test code = /L 41455-5) NRBC % (Nucleated Red Blood 1.2 % Cell %) (test code = 95159-0) MPV (Mean Platelet Volume) 9.8 fL 7.2-11.7 (test code = 44177728) Slide Review/Morphology (test Yes Bl ood film reviewed, code = 38832403) instrument coun ts confirmed,Macroc ytes,Ani socytosis, Lab Interpretation (test code Abnormal = 22918-3) [id number] 11:48:32 Test Item Value Reference Range Comments Creatinine (test code = Creatinine) 0.7000 mg/dL 0.5000-1.500 0 Cr Clearance (Est) (test code = Cr Clearance 118.0600 75. 0000-115.0000 (Est)) [id number] 09:04:00 Test Item Value Reference Range Comments WBC (test code = WBC) 5.3000 3.5000-10.0000 RBC (test code = RBC) 2.6900 3.8000-6.1000 HGB (test code = HGB) 10.0000 g/dL 11.0000-16.0000 HCT (test code = HCT) 29.1000 % 35.0000-46.0000 MCV (test code = MCV) 108.4000 fL 80.0000-100.0000 MCH (test code = MCH) 37.4000 pg 27.0000-32.0000 MCHC (test code = MCHC) 34.4000 g/dL 31.0000-35.0000 RDW (test code = RDW) 14.1000 10.0000-15.0000 PLT (test code = PLT) 208.0000 140.0000-440.0000 MPV (test code = MPV) 6.8000 fL 6.5000-11.0000 Lymphocytes % (test code = Lymphocytes %) 24.4000 % 17.000 0-48.0000 MID% (test code = MID%) 6.7000 % 4.0000-10.0000 Neutrophils % (test code = Neutrophils %) 68.9000 % 43.000 0-77.0000 Lymphocytes (test code = Lymphocytes) 1.3000 1.2000-3.2 000 MID (test code = MID) 0.4000 0.3000-0.8000 Neutrophils (test code = Neutrophils) 3.6000 1.2000-7.0 000 [id number] 09:04:00 Test Item Value Reference Range Comments Creatinine (test code = Creatinine) 0.7000 mg/dL 0.5000-1.000 0 Cr Clearance (Est) (test code = Cr 118.0600 75.0000-115.0 000 Clearance (Est)) Glucose (test code = Glucose) 87.0000 mg/dL 73.0000-118.0000 BUN (test code = BUN) 14.0000 mg/dL 5.0000-26.0000 Sodium (test code = Sodium) 142.0000 mmol/L 128.0000-145.0000 Potassium (test code = Potassium) 3.5000 mmol/L 3.5000-5.2000 Chloride (test code = Chloride) 103.0000 mmol/L 97.0000-108.0000 CO2 (test code = CO2) 29.0000 mmol/L 20.0000-32.0000 Albumin (test code = Albumin) 3.6000 g/dL 3.6000-4.8000 Alkaline Phosphatase (test code = Alkaline 55.0000 25.00 00-165.0000 Phosphatase) ALT (SGPT) (test code = ALT (SGPT)) 30.0000 0.0000-40.00 00 AST (SGOT) (test code = AST (SGOT)) 25.0000 0.0000-40.00 00 Calcium (test code = Calcium) 10.6000 mg/dL 8.5000-10.6000 Bilirubin, Total (test code = Bilirubin, 0.7000 mg/dL 0.1000- 1.2000 Total) Protein, Total (test code = Protein, 6.7000 g/dL 6.0000-8.50 00 Total) eGFR -Stateless (test code = eGFR 60.0000 60.0000- 170.0000 -Stateless) eGFR Gpk-Eqevois-Bnoxieir (test code = 60.0000 60.0000-1 70.0000 eGFR Mtx-Covgmcn-Irezrmnu) [id number] 09:46:56 Test Item Value Reference Range Comments Creatinine (test code = Creatinine) 0.7000 mg/dL 0.5000-1.500 0 Cr Clearance (Est) (test code = Cr Clearance 118.5200 75. 0000-115.0000 (Est)) [id number] 09:13:00 Test Item Value Reference Range Comments WBC (test code = WBC) 7.1000 3.5000-10.0000 RBC (test code = RBC) 2.8200 3.8000-6.1000 HGB (test code = HGB) 10.1000 g/dL 11.0000-16.0000 HCT (test code = HCT) 30.2000 % 35.0000-46.0000 MCV (test code = MCV) 106.9000 fL 80.0000-100.0000 MCH (test code = MCH) 36.0000 pg 27.0000-32.0000 MCHC (test code = MCHC) 33.6000 g/dL 31.0000-35.0000 RDW (test code = RDW) 14.5000 10.0000-15.0000 PLT (test code = PLT) 130.0000 140.0000-440.0000 MPV (test code = MPV) 7.3000 fL 6.5000-11.0000 Lymphocytes % (test code = Lymphocytes %) 29.4000 % 17.000 0-48.0000 MID% (test code = MID%) 6.1000 % 4.0000-10.0000 Neutrophils % (test code = Neutrophils %) 64.5000 % 43.000 0-77.0000 Lymphocytes (test code = Lymphocytes) 2.1000 1.2000-3.2 000 MID (test code = MID) 0.4000 0.3000-0.8000 Neutrophils (test code = Neutrophils) 4.6000 1.2000-7.0 000 [id number] 09:13:00 Test Item Value Reference Range Comments Creatinine (test code = Creatinine) 0.7000 mg/dL 0.5000-1.000 0 Cr Clearance (Est) (test code = Cr 118.5200 75.0000-115.0 000 Clearance (Est)) Glucose (test code = Glucose) 88.0000 mg/dL 73.0000-118.0000 BUN (test code = BUN) 11.0000 mg/dL 5.0000-26.0000 Sodium (test code = Sodium) 139.0000 mmol/L 128.0000-145.0000 Potassium (test code = Potassium) 4.0000 mmol/L 3.5000-5.2000 Chloride (test code = Chloride) 107.0000 mmol/L 97.0000-108.0000 CO2 (test code = CO2) 32.0000 mmol/L 20.0000-32.0000 Albumin (test code = Albumin) 3.5000 g/dL 3.6000-4.8000 Alkaline Phosphatase (test code = Alkaline 51.0000 25.00 00-165.0000 Phosphatase) ALT (SGPT) (test code = ALT (SGPT)) 34.0000 0.0000-40.00 00 AST (SGOT) (test code = AST (SGOT)) 31.0000 0.0000-40.00 00 Calcium (test code = Calcium) 9.5000 mg/dL 8.5000-10.6000 Bilirubin, Total (test code = Bilirubin, 0.8000 mg/dL 0.1000- 1.2000 Total) Protein, Total (test code = Protein, 6.6000 g/dL 6.0000-8.50 00 Total) eGFR -Stateless (test code = eGFR 60.0000 60.0000- 170.0000 -Stateless) eGFR Sar-Tjiwbgm-Gordaeap (test code = 60.0000 60.0000-1 70.0000 eGFR Ngh-Ncnnpiq-Lcvzkqcp) [id number] 10:01:08 Test Item Value Reference Range Comments Creatinine (test code = Creatinine) 0.9000 mg/dL 0.5000-1.500 0 Cr Clearance (Est) (test code = Cr Clearance 91.6400 75. 0000-115.0000 (Est)) [id number] 09:20:00 Test Item Value Reference Range Comments WBC (test code = WBC) 7.9000 3.5000-10.0000 RBC (test code = RBC) 2.9200 3.8000-6.1000 HGB (test code = HGB) 10.4000 g/dL 11.0000-16.0000 HCT (test code = HCT) 30.4000 % 35.0000-46.0000 MCV (test code = MCV) 104.1000 fL 80.0000-100.0000 MCH (test code = MCH) 35.7000 pg 27.0000-32.0000 MCHC (test code = MCHC) 34.2000 g/dL 31.0000-35.0000 RDW (test code = RDW) 14.2000 10.0000-15.0000 PLT (test code = PLT) 218.0000 140.0000-440.0000 MPV (test code = MPV) 7.5000 fL 6.5000-11.0000 Lymphocytes % (test code = Lymphocytes %) 26.7000 % 17.000 0-48.0000 MID% (test code = MID%) 5.7000 % 4.0000-10.0000 Neutrophils % (test code = Neutrophils %) 67.6000 % 43.000 0-77.0000 Lymphocytes (test code = Lymphocytes) 2.1000 1.2000-3.2 000 MID (test code = MID) 0.4000 0.3000-0.8000 Neutrophils (test code = Neutrophils) 5.4000 1.2000-7.0 000 [id number] 09:20:00 Test Item Value Reference Range Comments Creatinine (test code = Creatinine) 0.9000 mg/dL 0.5000-1.000 0 Cr Clearance (Est) (test code = Cr 91.6400 75.0000-115.0 000 Clearance (Est)) Glucose (test code = Glucose) 81.0000 mg/dL 73.0000-118.0000 BUN (test code = BUN) 13.0000 mg/dL 5.0000-26.0000 Sodium (test code = Sodium) 138.0000 mmol/L 128.0000-145.0000 Potassium (test code = Potassium) 4.1000 mmol/L 3.5000-5.2000 Chloride (test code = Chloride) 106.0000 mmol/L 97.0000-108.0000 CO2 (test code = CO2) 29.0000 mmol/L 20.0000-32.0000 Albumin (test code = Albumin) 3.5000 g/dL 3.6000-4.8000 Alkaline Phosphatase (test code = Alkaline 62.0000 25.00 00-165.0000 Phosphatase) ALT (SGPT) (test code = ALT (SGPT)) 26.0000 0.0000-40.00 00 AST (SGOT) (test code = AST (SGOT)) 28.0000 0.0000-40.00 00 Calcium (test code = Calcium) 9.5000 mg/dL 8.5000-10.6000 Bilirubin, Total (test code = Bilirubin, 0.9000 mg/dL 0.1000- 1.2000 Total) Protein, Total (test code = Protein, 6.7000 g/dL 6.0000-8.50 00 Total) eGFR -Stateless (test code = eGFR 60.0000 60.0000- 170.0000 -Stateless) eGFR Fps-Katcnxi-Xiofqvlz (test code = 60.0000 60.0000-1 70.0000 eGFR Hxw-Elfxyio-Qblbwkmd) [id number] 09:02:00 Test Item Value Reference Range Comments Creatinine (test code = Creatinine) 1.0000 mg/dL 0.5000-1.000 0 Cr Clearance (Est) (test code = Cr 82.1500 75.0000-115.0 000 Clearance (Est)) Glucose (test code = Glucose) 98.0000 mg/dL 73.0000-118.0000 BUN (test code = BUN) 8.0000 mg/dL 5.0000-26.0000 Sodium (test code = Sodium) 139.5000 mmol/L 128.0000-145.0000 Potassium (test code = Potassium) 3.8000 mmol/L 3.5000-5.2000 Chloride (test code = Chloride) 105.1000 mmol/L 97.0000-108.0000 CO2 (test code = CO2) 28.0000 mmol/L 20.0000-32.0000 Albumin (test code = Albumin) 3.9000 g/dL 3.6000-4.8000 Alkaline Phosphatase (test code = Alkaline 48.0000 25.00 00-165.0000 Phosphatase) ALT (SGPT) (test code = ALT (SGPT)) 25.0000 0.0000-40.00 00 AST (SGOT) (test code = AST (SGOT)) 18.0000 0.0000-40.00 00 Calcium (test code = Calcium) 8.7200 mg/dL 8.5000-10.6000 Bilirubin, Total (test code = Bilirubin, 0.5000 mg/dL 0.1000- 1.2000 Total) Protein, Total (test code = Protein, 5.8000 g/dL 6.0000-8.50 00 Total) eGFR -Stateless (test code = eGFR 60.0000 60.0000- 170.0000 -Stateless) eGFR Ndj-Lahvdcm-Fppkdijo (test code = 60.0000 60.0000-1 70.0000 eGFR Pyt-Ibgwdjj-Vfutytrn) [id number] 09:18:10 Test Item Value Reference Range Comments Creatinine (test code = Creatinine) 0.7000 mg/dL 0.5000-1.500 0 Cr Clearance (Est) (test code = Cr Clearance 117.3600 75. 0000-115.0000 (Est)) [id number] 08:49:00 Test Item Value Reference Range Comments WBC (test code = WBC) 5.1000 3.5000-10.0000 RBC (test code = RBC) 2.9800 3.8000-6.1000 HGB (test code = HGB) 10.5000 g/dL 11.0000-16.0000 HCT (test code = HCT) 30.3000 % 35.0000-46.0000 MCV (test code = MCV) 101.5000 fL 80.0000-100.0000 MCH (test code = MCH) 35.4000 pg 27.0000-32.0000 MCHC (test code = MCHC) 34.9000 g/dL 31.0000-35.0000 RDW (test code = RDW) 12.7000 10.0000-15.0000 PLT (test code = PLT) 170.0000 140.0000-440.0000 MPV (test code = MPV) 6.8000 fL 6.5000-11.0000 Lymphocytes % (test code = Lymphocytes %) 40.0000 % 17.000 0-48.0000 MID% (test code = MID%) 6.4000 % 4.0000-10.0000 Neutrophils % (test code = Neutrophils %) 53.6000 % 43.000 0-77.0000 Lymphocytes (test code = Lymphocytes) 2.0000 1.2000-3.2 000 MID (test code = MID) 0.4000 0.3000-0.8000 Neutrophils (test code = Neutrophils) 2.7000 1.2000-7.0 000 [id number] 08:48:00 Test Item Value Reference Range Comments Creatinine (test code = Creatinine) 0.7000 mg/dL 0.5000-1.000 0 Cr Clearance (Est) (test code = Cr 117.3600 75.0000-115.0 000 Clearance (Est)) Glucose (test code = Glucose) 114.0000 mg/dL 73.0000-118.0000 BUN (test code = BUN) 12.0000 mg/dL 5.0000-26.0000 Sodium (test code = Sodium) 142.0000 mmol/L 128.0000-145.0000 Potassium (test code = Potassium) 3.1000 mmol/L 3.5000-5.2000 Chloride (test code = Chloride) 105.0000 mmol/L 97.0000-108.0000 CO2 (test code = CO2) 30.0000 mmol/L 20.0000-32.0000 Albumin (test code = Albumin) 3.2000 g/dL 3.6000-4.8000 Alkaline Phosphatase (test code = Alkaline 47.0000 25.00 00-165.0000 Phosphatase) ALT (SGPT) (test code = ALT (SGPT)) 22.0000 0.0000-40.00 00 AST (SGOT) (test code = AST (SGOT)) 22.0000 0.0000-40.00 00 Calcium (test code = Calcium) 9.3000 mg/dL 8.5000-10.6000 Bilirubin, Total (test code = Bilirubin, 0.9000 mg/dL 0.1000- 1.2000 Total) Protein, Total (test code = Protein, 6.0000 g/dL 6.0000-8.50 00 Total) eGFR -Stateless (test code = eGFR 60.0000 60.0000- 170.0000 -Stateless) eGFR Glr-Dozkgju-Tbtodatl (test code = 60.0000 60.0000-1 70.0000 eGFR Msd-Ytaadtv-Bkcwhhio) [id number] 10:39:27 Test Item Value Reference Range Comments Creatinine (test code = Creatinine) 0.6000 mg/dL 0.5000-1.500 0 Cr Clearance (Est) (test code = Cr Clearance 135.4600 75. 0000-115.0000 (Est)) [id number] 09:19:00 Test Item Value Reference Range Comments WBC (test code = WBC) 10.7000 3.5000-10.0000 RBC (test code = RBC) 3.5300 3.8000-6.1000 HGB (test code = HGB) 12.2000 g/dL 11.0000-16.0000 HCT (test code = HCT) 36.0000 % 35.0000-46.0000 MCV (test code = MCV) 101.9000 fL 80.0000-100.0000 MCH (test code = MCH) 34.5000 pg 27.0000-32.0000 MCHC (test code = MCHC) 33.8000 g/dL 31.0000-35.0000 RDW (test code = RDW) 12.5000 10.0000-15.0000 PLT (test code = PLT) 175.0000 140.0000-440.0000 MPV (test code = MPV) 8.1000 fL 6.5000-11.0000 Lymphocytes % (test code = Lymphocytes %) 19.7000 % 17.000 0-48.0000 MID% (test code = MID%) 5.4000 % 4.0000-10.0000 Neutrophils % (test code = Neutrophils %) 74.9000 % 43.000 0-77.0000 Lymphocytes (test code = Lymphocytes) 2.1000 1.2000-3.2 000 MID (test code = MID) 0.6000 0.3000-0.8000 Neutrophils (test code = Neutrophils) 8.0000 1.2000-7.0 000 [id number] 09:19:00 Test Item Value Reference Range Comments Creatinine (test code = Creatinine) 0.6000 mg/dL 0.5000-1.000 0 Cr Clearance (Est) (test code = Cr 135.4600 75.0000-115.0 000 Clearance (Est)) Glucose (test code = Glucose) 137.0000 mg/dL 73.0000-118.0000 BUN (test code = BUN) 11.0000 mg/dL 5.0000-26.0000 Sodium (test code = Sodium) 138.0000 mmol/L 128.0000-145.0000 Potassium (test code = Potassium) 3.4000 mmol/L 3.5000-5.2000 Chloride (test code = Chloride) 110.0000 mmol/L 97.0000-108.0000 CO2 (test code = CO2) 27.0000 mmol/L 20.0000-32.0000 Albumin (test code = Albumin) 3.4000 g/dL 3.6000-4.8000 Alkaline Phosphatase (test code = Alkaline 43.0000 25.00 00-165.0000 Phosphatase) ALT (SGPT) (test code = ALT (SGPT)) 25.0000 0.0000-40.00 00 AST (SGOT) (test code = AST (SGOT)) 23.0000 0.0000-40.00 00 Calcium (test code = Calcium) 9.1000 mg/dL 8.5000-10.6000 Bilirubin, Total (test code = Bilirubin, 0.8000 mg/dL 0.1000- 1.2000 Total) Protein, Total (test code = Protein, 6.4000 g/dL 6.0000-8.50 00 Total) eGFR -Stateless (test code = eGFR 60.0000 60.0000- 170.0000 -Stateless) eGFR Iqi-Tqbzbdg-Cddkkxnl (test code = 60.0000 60.0000-1 70.0000 eGFR Hpr-Sfjcikf-Rddfveal) [id number] 09:14:17 Test Item Value Reference Range Comments Creatinine (test code = Creatinine) 0.8000 mg/dL 0.5000-1.500 0 Cr Clearance (Est) (test code = Cr Clearance 101.6000 75. 0000-115.0000 (Est)) [id number] 08:45:00 Test Item Value Reference Range Comments WBC (test code = WBC) 4.8000 3.5000-10.0000 RBC (test code = RBC) 3.4200 3.8000-6.1000 HGB (test code = HGB) 12.1000 g/dL 11.0000-16.0000 HCT (test code = HCT) 34.9000 % 35.0000-46.0000 MCV (test code = MCV) 101.8000 fL 80.0000-100.0000 MCH (test code = MCH) 35.4000 pg 27.0000-32.0000 MCHC (test code = MCHC) 34.8000 g/dL 31.0000-35.0000 RDW (test code = RDW) 12.2000 10.0000-15.0000 PLT (test code = PLT) 272.0000 140.0000-440.0000 MPV (test code = MPV) 7.9000 fL 6.5000-11.0000 Lymphocytes % (test code = Lymphocytes %) 31.1000 % 17.000 0-48.0000 MID% (test code = MID%) 7.4000 % 4.0000-10.0000 Neutrophils % (test code = Neutrophils %) 61.5000 % 43.000 0-77.0000 Lymphocytes (test code = Lymphocytes) 1.5000 1.2000-3.2 000 MID (test code = MID) 0.4000 0.3000-0.8000 Neutrophils (test code = Neutrophils) 2.9000 1.2000-7.0 000 [id number] 08:45:00 Test Item Value Reference Range Comments Creatinine (test code = Creatinine) 0.8000 mg/dL 0.5000-1.000 0 Cr Clearance (Est) (test code = Cr 101.6000 75.0000-115.0 000 Clearance (Est)) Glucose (test code = Glucose) 121.0000 mg/dL 73.0000-118.0000 BUN (test code = BUN) 10.0000 mg/dL 5.0000-26.0000 Sodium (test code = Sodium) 142.0000 mmol/L 128.0000-145.0000 Potassium (test code = Potassium) 3.6000 mmol/L 3.5000-5.2000 Chloride (test code = Chloride) 110.0000 mmol/L 97.0000-108.0000 CO2 (test code = CO2) 30.0000 mmol/L 20.0000-32.0000 Albumin (test code = Albumin) 3.4000 g/dL 3.6000-4.8000 Alkaline Phosphatase (test code = Alkaline 45.0000 25.00 00-165.0000 Phosphatase) ALT (SGPT) (test code = ALT (SGPT)) 18.0000 0.0000-40.00 00 AST (SGOT) (test code = AST (SGOT)) 23.0000 0.0000-40.00 00 Calcium (test code = Calcium) 9.3000 mg/dL 8.5000-10.6000 Bilirubin, Total (test code = Bilirubin, 0.8000 mg/dL 0.1000- 1.2000 Total) Protein, Total (test code = Protein, 6.4000 g/dL 6.0000-8.50 00 Total) eGFR -Stateless (test code = eGFR 60.0000 60.0000- 170.0000 -Stateless) eGFR Thu-Sezftly-Etrwszkx (test code = 60.0000 60.0000-1 70.0000 eGFR Tmz-Dptkfjv-Ydiblfuj) Assessments Condition Name Status Diagnosis Date Treating Clinici an 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, estrogen receptor positive (CMS-HCC) S/P right mastectomy Unknown S/P right mastectomy Unknown 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, estrogen receptor positive (CMS-HCC) S/P right mastectomy Unknown 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, estrogen receptor positive (CMS-HCC) Gastroesophageal reflux disease without Unknown esophagitis Anxiety Unknown 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, estrogen receptor positive (CMS-HCC) S/P right mastectomy Unknown Breast cancer screening, high risk patient Unknown Personal history of breast cancer Unknown S/P right mastectomy Unknown Need for immunization against influenza Unknown S/P right mastectomy Unknown 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, 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, 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, estrogen receptor positive (CMS-HCC) S/P right mastectomy Unknown 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, estrogen receptor positive (CMS-HCC) Gastroesophageal reflux disease without Unknown esophagitis Anxiety Unknown Screening for viral disease Unknown S/P right mastectomy Unknown 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, estrogen receptor positive (CMS-HCC) Encounters Start End Encounter Admission Attending Care Care Encounter Date/Time Date/Time Type Type Clinicians Facility Department ID 2020-07-22 2020-07-22 Outpatient Otilio [facility] [id number] 00:00:00 00:00:00 rn [facility] [place] 2020-07-21 2020-07-21 Outpatient Otilio [facility] [id number] 00:00:00 00:00:00 rn [facility] [place] 2020-07-19 2020-07-19 Jordan Otilio [facility] 00:00:00 00:00:00 Louisa Baez rn [facility] [place] 2020-07-16 2020-07-16 Outpatient Otilio Benitez n [id number] 00:00:00 00:00:00 George fitzpatrick [facility] [place] 2020-07-15 2020-07-15 Outpatient Otilio [facility] [id number] 00:00:00 00:00:00 amari [facility] [place] 2020-07-12 2020-07-12 Outpatient Otilio Benitez n [id number] 00:00:00 00:00:00 George fitzpatrick [facility] [place] 2020-07-11 2020-07-11 Outpatient Otilio [facility] [id number] 00:00:00 00:00:00 rn [facility] [place] 2020-07-05 2020-07-05 Otilio Benitez [facility] 2 [id number] 00:00:00 00:00:00 Dr. George fit[facility] [place] 2020-07-02 2020-07-02 Outpatient Otilio Benitezer n [id number] 00:00:00 00:00:00 [facility] 2020-06-28 2020-06-28 Outpatient Otilio Benitez n [id number] 00:00:00 00:00:00 [facility] 2020-06-27 2020-06-27 Outpatient Otilio Benitezer n [id number] 00:00:00 00:00:00 [facility] 2020-06-21 2020-06-21 Outpatient Otilio Benitezer n [id number] 00:00:00 00:00:00 [facility] 2020-06-20 2020-06-20 Outpatient Otilio Benitezer n [id number] 00:00:00 00:00:00 [facility] [place] 2020-06-17 2020-06-17 Outpatient Otilio Mishra [id number] 00:00:00 00:00:00 rn [facility] [place] 2020-06-14 2020-06-14 Eli Benitez [facility] [id number] 00:00:00 00:00:00 Dr. George Vazquez rn [facility] [place] 2020-06-07 2020-06-07 Outpatient Otilio Benitez n [id number] 00:00:00 00:00:00 George [facility] [place] 2020-06-06 2020-06-06 Outpatient [facility] [id number] 00:00:00 00:00:00 [facility] [place] 2020-06-04 2020-06-04 Outpatient DELORES MELLO [facility] [id number] 10:49:03 10:49:03 [facility] 2020-05-31 2020-05-31 Outpatient Otilio Benitez n [id number] 00:00:00 00:00:00 [facility] [place] 2020-05-30 2020-05-30 Outpatient [facility] [id number] 00:00:00 00:00:00 amari [facility] [place] 2020-05-29 2020-05-29 Outpatient DELORES HERNANDEZ [facility] [id number] 09:01:24 09:01:24 DAVE 2020-05-28 2020-05-28 Outpatient Otilio [facility] [id number] 00:00:00 00:00:00 rn [facility] [place] 2020-05-27 2020-05-27 Outpatient Otilio [facility] [id number] 00:00:00 00:00:00 rn [facility] [place] 2020-05-24 2020-05-24 Otilio Benitez 2 [id number] 00:00:00 00:00:00 Dr. [facility] [place] 2020-05-22 2020-05-22 Outpatient Otilio Mishar [id number] 00:00:00 00:00:00 rn [facility] [place] 2020-05-17 2020-05-17 Outpatient Otilio [facility] [id number] 00:00:00 00:00:00 rn [facility] [place] 2020-05-17 2020-05-17 Outpatient [facility] [id number] 00:00:00 00:00:00 2020-05-16 2020-05-16 [facility] [id number] 15:35:32 15:35:32 TOMA 2020-05-15 2020-05-15 Outpatient Otilio Benitez n [id number] 00:00:00 00:00:00 [facility] [place] 2020-05-13 2020-05-13 Outpatient Otilio Mishra [id number] 00:00:00 00:00:00 rn [facility] [place] 2020-05-10 2020-05-10 [facility] [id number] 12:40:51 12:40:51 AYSE 2020-05-10 2020-05-10 [facility] [id number] 11:49:52 11:49:52 DAVE 2020-05-09 2020-05-09 Outpatient Otilio Mishra [id number] 00:00:00 00:00:00 rn [facility] [place] 2020-05-08 2020-05-08 Outpatient Otilio Benitez n [id number] 00:00:00 00:00:00 [facility] [place] 2020-05-08 2020-05-08 Outpatient [facility] [id number] 00:00:00 00:00:00 2020-05-07 2020-05-07 Outpatient Otilio [facility] [id number] 00:00:00 00:00:00 rn [facility] [place] 2020-05-07 2020-05-07 [facility] [id number] 00:00:00 00:00:00 2020-05-07 2020-05-07 Outpatient DU DU [id number] 00:00:00 00:00:00 2020-05-06 2020-05-06 Outpatient Otilio [facility] [id number] 00:00:00 00:00:00 rn [facility] [place] 2020-05-03 2020-05-03 Outpatient RIAZ LATRICEBAILEY [facility] [id number] 14:13:45 14:13:45 TOMA 2020-05-03 2020-05-03 Outpatient Otilio [facility] [id number] 00:00:00 00:00:00 rn [facility] [place] 2020-05-01 2020-05-01 [id number]:00 Danielle rn [facility] [place] 2020-04-27 2020-04-27 Outpatient [facility] [id number] 00:00:00 00:00:00 2020-04-26 2020-04-26 Outpatient DELORES HERNANDEZ [facility] [id number] 11:56:42 11:56:42 DAVE 2020-04-23 2020-04-24 Outpatient DELORES MCCOLLUM [facility] [id number] 09:42:05 09:50:00 AYSE 2020-04-24 2020-04-24 Outpatient Otilio [facility] [id number] 00:00:00 00:00:00 rn [facility] [place] 2020-04-23 2020-04-23 [facility] [id number] 11:15:27 11:15:27 2020-04-23 2020-04-23 Outpatient DELORES HERNANDEZ [id number] 08:22:17 08:22:17 DAVE 2020-04-23 2020-04-23 Outpatient Otilio [facility] [id number] 00:00:00 00:00:00 rn [facility] [place] 2020-04-22 2020-04-22 Outpatient DU DU [id number] 10:30:11 10:30:11 2020-04-22 2020-04-22 [place] [id number] 09:17:11 09:17:11 DAVE 2020-04-22 2020-04-22 Outpatient [facility] DU [id number] 08:50:54 08:50:54 2020-04-15 2020-04-15 Outpatient Otilio Benitez n [id number] 00:00:00 00:00:00 [facility] [place] 2020-04-12 2020-04-12 Outpatient Otilio [facility] [id number] 00:00:00 00:00:00 rn [facility] [place] 2020-04-11 2020-04-11 Outpatient [facility] DU [id number] 00:00:00 00:00:00 2020-04-09 2020-04-09 Outpatient [facility] DU [id number] 10:02:31 11:18:17 2020-04-09 2020-04-09 Outpatient Otilio [facility] [id number] 00:00:00 00:00:00 rn [facility] [place] 2020-04-08 2020-04-08 Outpatient Otilio [facility] [id number] 00:00:00 00:00:00 rn [facility] [place] 2020-04-05 2020-04-05 Outpatient Otilio [facility] [id number] 00:00:00 00:00:00 rn [facility] [place] 2020-03-28 2020-03-28 Jaime Otilio Benitez [facility] [id number] 00:00:00 00:00:00 Teto Vazquez rn [facility] [place] 2020-03-25 2020-03-25 PabloOtilio [facility] [id number] 00:00:00 00:00:00 Jada Garrido rn [facility] [place] 2020-03-22 2020-03-22 Outpatient STEPHANEDELORES CARRENO [facility] [id number] 10:10:14 10:10:14 AYSE 2020-03-19 2020-03-19 Outpatient Otilio [facility] [id number] 00:00:00 00:00:00 rn [facility] [place] 2020-03-13 2020-03-13 Outpatient Otilio [facility] [id number] 00:00:00 00:00:00 rn [facility] [place] 2020-03-04 2020-03-04 [facility] [id number] 00:00:00 00:00:00 rn [facility] 2020-02-28 2020-02-28 Outpatient Otilio Mishra [id number] 00:00:00 00:00:00 rn [facility] 2020-02-20 2020-02-20 Outpatient DELORES HERNANDEZ [facility] [id number] 10:54:15 10:54:15 DAVE 2020-02-12 2020-02-12 Kareem Lila Otilio Mishra [id number] 00:00:00 00:00:00 rn [facility] 2020-02-09 2020-02-09 Outpatient Otilio Mishra [id number] 00:00:00 00:00:00 rn [facility] 2020-01-23 2020-01-23 Outpatient Otilio Benitez n [id number] 00:00:00 00:00:00 [facility] 2020-01-22 2020-01-22 Outpatient Otilio Mishra [id number] 00:00:00 00:00:00 rn [facility] 2020-01-19 2020-01-19 Outpatient Otilio Benitez n [id number] 00:00:00 00:00:00 [facility] 2020-01-15 2020-01-15 Kareem Lila Yañez Tad [id number] 00:00:00 00:00:00 rn [facility] 2020-01-12 2020-01-12 Outpatient Otilio Mishra [id number] 00:00:00 00:00:00 rn [facility] 2020-01-11 2020-01-11 Outpatient Otilio Mishra [id number] 00:00:00 00:00:00 rn [facility] 2020-01-10 2020-01-10 Outpatient Otilio Mishra [id number] 00:00:00 00:00:00 rn [facility] 2019-12-25 2019-12-25 Kareem Lila Otilio Tad [id number] 00:00:00 00:00:00 rn [facility] 2019-12-21 2019-12-21 Outpatient Otilio Mishra [id number] 00:00:00 00:00:00 rn [facility] 2019-12-14 2019-12-14 Lila SernaOtilio negreteer n [id number] 00:00:00 00:00:00 [facility] 2019-12-13 2019-12-13 Outpatient [facility] [id number] 00:00:00 00:00:00 rn [facility] 2019-12-07 2019-12-07 Outpatient [facility] [id number] 00:00:00 00:00:00 rn [facility] 2019-12-06 2019-12-06 Outpatient [facility] [id number] 00:00:00 00:00:00 rn [facility] 2019-12-04 2019-12-04 Outpatient Otilio Benitezer n [id number] 00:00:00 00:00:00 [facility] 2019-11-24 2019-11-24 Outpatient [facility] [id number] 00:00:00 00:00:00 rn [facility] 2019-11-22 2019-11-22 Outpatient [facility] [id number] 00:00:00 00:00:00 rn [facility] 2019-11-21 2019-11-21 Outpatient Otilio Benitez n [id number] 00:00:00 00:00:00 [facility] 2019-11-20 2019-11-20 Outpatient Otilio Benitez n [id number] 00:00:00 00:00:00 [facility] 2019-11-17 2019-11-17 Outpatient [facility] [id number] 00:00:00 00:00:00 rn [facility] 2019-11-16 2019-11-16 Eli [facility] [id number] 00:00:00 00:00:00 Dr. George Vazquez rn [facility] 2019-11-14 2019-11-14 Outpatient [facility] [id number] 00:00:00 00:00:00 rn [facility] 2019-11-10 2019-11-10 Outpatient [facility] [id number] 00:00:00 00:00:00 rn [facility] 2019-11-08 2019-11-08 Outpatient [facility] [id number] 00:00:00 00:00:00 rn [facility] 2019-11-07 2019-11-07 Outpatient [facility] DU [id number] 08:00:00 23:59:00 2019-11-07 2019-11-07 Outpatient Otilio [facility] [id number] 00:00:00 00:00:00 rn Medical Medical Oncology Oncology [facility] 2019-11-02 2019-11-02 Outpatient Otilio [facility] [id number] 00:00:00 00:00:00 rn [facility] Medical Oncology Oncology [facility] 2019-11-01 2019-11-01 Outpatient [facility] [id number] 00:00:00 00:00:00 rn Medical Medical Oncology Oncology [facility] 2018-08-24 2018-08-24 Outpatient [facility] [id number] 10:53:48 11:28:57 2018-08-24 2018-08-24 Outpatient [facility] [id number] 00:00:00 00:00:00 2018-08-24 2018-08-24 Outpatient [facility] [id number] 00:00:00 00:00:00 2017-12-21 2017-12-21 Outpatient [id number] BEDS AT [facility] [id number] 15:19:59 16:03:04 [id number] 2017-12-16 2017-12-16 Outpatient [facility] COUNTS [facility]CLUDE [id number] BEDS AT THE [facility] [id number] 00:00:00 00:00:00 [id number] Payers Payer Name Policy Type Policy Number Effective Date Expiration D ate [employer] BLUE [id number] 2017 00:00:00 OPTIONS/PPO/ADV Plan of Treatment Planned Activity Planned Date Details Comments Future Scheduled Test [code = ] Future Scheduled Test [code = ] Future Scheduled Test [code = ] Future Scheduled Test [code = ] Future Scheduled Test [code = ] Future Scheduled Test [code = ] Future Scheduled Test [code = ] Future Scheduled Test [code = ] Future Scheduled Test [code = ] Future Scheduled Test [code = ] Future Scheduled Test [code = ] Future Scheduled Test [code = ] Future Scheduled Test [code = ] Future Scheduled Test [code = ] Future Appointment 2020-12-06 15:00:00 Ayse Mccollum MD, [address] [place] [address] [id number] Future Appointment 2020-12-06 14:00:00 Ayse Mccollum MD, [address] [place] [address] Social History Social Habit Start Date Stop Date Comments History SDOH Alcohol Std Drinks History SDOH Alcohol Binge Exposure to SARS-CoV-2 (event) Alcohol intake 2020-06-04 00:00:00 2020-06-04 00:00:00 Tobacco use and exposure 2020-06-04 00:00:00 2020-06-04 00:00:00 History SDOH Alcohol Frequency 2019-11-24 00:00:00 2019-11-24 00 :00:00 History SDOH Education 2019-11-24 00:00:00 2019-11-24 00:00:00 Tobacco smoking status OKIS 2018-08-24 00:00:00 2018-08-24 00:00 :00 Smoking Status Start Date Stop Date Never 2020-07-19 00:00:00 Social History Observation Description Sex Female Vital Signs Vital Name Observation Time Observation Value Comments Systolic blood pressure 2020-06-04 10:56:00 106 mm[Hg] Diastolic blood pressure 2020-06-04 10:56:00 68 mm[Hg] Heart rate 2020-06-04 10:56:00 90 /min Body temperature 2020-06-04 10:56:00 36.78 Rosalina Respiratory rate 2020-06-04 10:56:00 18 /min Body height 2020-06-04 10:56:00 165.1 cm Body weight 2020-06-04 10:56:00 73.5 kg BMI 2020-06-04 10:56:00 26.96 kg/m2 Oxygen saturation in Arterial blood by 2020-06-04 10:56:00 98 % Pulse oximetry Systolic blood pressure 2020-05-29 09:38:00 118 mm[Hg] Diastolic blood pressure 2020-05-29 09:38:00 74 mm[Hg] Body temperature 2020-05-29 09:38:00 36.72 Rosalina Respiratory rate 2020-05-29 09:38:00 18 /min Body weight 2020-05-29 09:38:00 71.4 kg BMI 2020-05-29 09:38:00 26.19 kg/m2 Oxygen saturation in Arterial blood by 2020-05-29 09:38:00 98 % Pulse oximetry Systolic blood pressure 2020-05-16 15:48:00 135 mm[Hg] Diastolic blood pressure 2020-05-16 15:48:00 85 mm[Hg] Heart rate 2020-05-16 15:48:00 101 /min Body temperature 2020-05-16 15:48:00 37.61 Rosalina Body height 2020-05-16 15:48:00 165.1 cm Body weight 2020-05-16 15:48:00 70.308 kg BMI 2020-05-16 15:48:00 25.79 kg/m2 Systolic blood pressure 2020-05-10 12:48:00 138 mm[Hg] Diastolic blood pressure 2020-05-10 12:48:00 81 mm[Hg] Heart rate 2020-05-10 12:48:00 80 /min Body temperature 2020-05-10 12:48:00 37.22 Rosalina Respiratory rate 2020-05-10 12:48:00 18 /min Body height 2020-05-10 12:48:00 167.6 cm Body weight 2020-05-10 12:48:00 70.6 kg BMI 2020-05-10 12:48:00 25.13 kg/m2 Oxygen saturation in Arterial blood by 2020-05-10 12:48:00 97 % Pulse oximetry Systolic blood pressure 2020-05-10 12:01:00 132 mm[Hg] Diastolic blood pressure 2020-05-10 12:01:00 85 mm[Hg] Heart rate 2020-05-10 12:01:00 93 /min Body temperature 2020-05-10 12:01:00 36.72 Rosalina Systolic blood pressure 2020-05-03 14:35:00 139 mm[Hg] Diastolic blood pressure 2020-05-03 14:35:00 80 mm[Hg] Heart rate 2020-05-03 14:35:00 101 /min Body height 2020-05-03 14:35:00 167.6 cm Body weight 2020-05-03 14:35:00 70.4 kg BMI 2020-05-03 14:35:00 25.05 kg/m2 Systolic blood pressure 2020-04-23 08:27:00 119 mm[Hg] Diastolic blood pressure 2020-04-23 08:27:00 83 mm[Hg] Heart rate 2020-04-23 08:27:00 80 /min Body temperature 2020-04-23 08:27:00 36.5 Rosalina Body height 2020-04-23 08:27:00 167.6 cm Body weight 2020-04-23 08:27:00 69.854 kg BMI 2020-04-23 08:27:00 24.86 kg/m2 Systolic blood pressure 2020-04-09 10:23:00 149 mm[Hg] Diastolic blood pressure 2020-04-09 10:23:00 87 mm[Hg] Heart rate 2020-04-09 10:23:00 84 /min Body temperature 2020-04-09 10:23:00 36.89 Rosalina Respiratory rate 2020-04-09 10:23:00 12 /min Body height 2020-04-09 10:23:00 167.6 cm Body weight 2020-04-09 10:23:00 70.035 kg BMI 2020-04-09 10:23:00 24.92 kg/m2 Oxygen saturation in Arterial blood by 2020-04-09 10:23:00 98 % Pulse oximetry BMI 2020-07-19 10:31:21 25.3100 BP acharya 2020-07-19 10:31:21 87.0000 mm[Hg] Bdy height 2020-07-19 10:31:21 66.0000 [in_i] SaO2% BldA PulseOx 2020-07-19 10:31:21 98.0000 % Heart rate 2020-07-19 10:31:21 84.0000 /min Resp rate 2020-07-19 10:31:21 16.0000 /min BP sys 2020-07-19 10:31:21 128.0000 mm[Hg] Body temperature 2020-07-19 10:31:21 97.1000 [degF] Weight 2020-07-19 10:31:21 156.8000 [lb_av] Bdy height 2020-07-16 09:47:13 66.0000 [in_i] Body temperature 2020-07-16 09:47:13 97.7000 [degF] Bdy height 2020-07-12 09:37:01 66.0000 [in_i] Body temperature 2020-07-12 09:37:01 98.1000 [degF] BMI 2020-07-05 09:53:06 25.0200 BP acharya 2020-07-05 09:53:06 86.0000 mm[Hg] Bdy height 2020-07-05 09:53:06 66.0000 [in_i] SaO2% BldA PulseOx 2020-07-05 09:53:06 99.0000 % Heart rate 2020-07-05 09:53:06 89.0000 /min Resp rate 2020-07-05 09:53:06 16.0000 /min BP sys 2020-07-05 09:53:06 124.0000 mm[Hg] Body temperature 2020-07-05 09:53:06 98.5000 [degF] Weight 2020-07-05 09:53:06 155.0000 [lb_av] BMI 2020-06-27 08:40:27 25.4400 BP acharya 2020-06-27 08:40:27 80.0000 mm[Hg] Bdy height 2020-06-27 08:40:27 66.0000 [in_i] SaO2% BldA PulseOx 2020-06-27 08:40:27 99.0000 % Heart rate 2020-06-27 08:40:27 87.0000 /min Resp rate 2020-06-27 08:40:27 16.0000 /min BP sys 2020-06-27 08:40:27 117.0000 mm[Hg] Body temperature 2020-06-27 08:40:27 97.9000 [degF] Weight 2020-06-27 08:40:27 157.6000 [lb_av] BMI 2020-06-20 08:51:56 25.7000 BP acharya 2020-06-20 08:51:56 79.0000 mm[Hg] Bdy height 2020-06-20 08:51:56 66.0000 [in_i] SaO2% BldA PulseOx 2020-06-20 08:51:56 98.0000 % Heart rate 2020-06-20 08:51:56 89.0000 /min Resp rate 2020-06-20 08:51:56 16.0000 /min BP sys 2020-06-20 08:51:56 117.0000 mm[Hg] Body temperature 2020-06-20 08:51:56 98.1000 [degF] Weight 2020-06-20 08:51:56 159.2000 [lb_av] BMI 2020-06-14 10:39:48 25.3400 BP acharya 2020-06-14 10:39:48 80.0000 mm[Hg] Bdy height 2020-06-14 10:39:48 66.0000 [in_i] SaO2% BldA PulseOx 2020-06-14 10:39:48 98.0000 % Heart rate 2020-06-14 10:39:48 80.0000 /min Resp rate 2020-06-14 10:39:48 18.0000 /min BP sys 2020-06-14 10:39:48 118.0000 mm[Hg] Body temperature 2020-06-14 10:39:48 98.1000 [degF] Weight 2020-06-14 10:39:48 157.0000 [lb_av] Bdy height 2020-05-31 11:42:34 66.0000 [in_i] Body temperature 2020-05-31 11:42:34 97.2000 [degF] BMI 2020-05-24 11:29:07 25.7300 BP acharya 2020-05-24 11:29:07 73.0000 mm[Hg] Bdy height 2020-05-24 11:29:07 66.0000 [in_i] Heart rate 2020-05-24 11:29:07 90.0000 /min Resp rate 2020-05-24 11:29:07 16.0000 /min BP sys 2020-05-24 11:29:07 132.0000 mm[Hg] Body temperature 2020-05-24 11:29:07 97.2000 [degF] Weight 2020-05-24 11:29:07 159.4000 [lb_av] BMI 2020-05-01 11:25:41 25.1100 BP acharya 2020-05-01 11:25:41 85.0000 mm[Hg] Bdy height 2020-05-01 11:25:41 66.0000 [in_i] SaO2% BldA PulseOx 2020-05-01 11:25:41 98.0000 % Heart rate 2020-05-01 11:25:41 103.0000 /min Resp rate 2020-05-01 11:25:41 20.0000 /min BP sys 2020-05-01 11:25:41 125.0000 mm[Hg] Body temperature 2020-05-01 11:25:41 97.3000 [degF] Weight 2020-05-01 11:25:41 155.6000 [lb_av] BMI 2020-03-28 10:04:06 24.5300 BP acharya 2020-03-28 10:04:06 80.0000 mm[Hg] Bdy height 2020-03-28 10:04:06 66.0000 [in_i] SaO2% BldA PulseOx 2020-03-28 10:04:06 99.0000 % Heart rate 2020-03-28 10:04:06 94.0000 /min Resp rate 2020-03-28 10:04:06 16.0000 /min BP sys 2020-03-28 10:04:06 119.0000 mm[Hg] Body temperature 2020-03-28 10:04:06 99.0000 [degF] Weight 2020-03-28 10:04:06 152.0000 [lb_av] BMI 2020-03-25 08:41:07 24.6600 BP acharya 2020-03-25 08:41:07 73.0000 mm[Hg] Bdy height 2020-03-25 08:41:07 66.0000 [in_i] SaO2% BldA PulseOx 2020-03-25 08:41:07 99.0000 % Heart rate 2020-03-25 08:41:07 89.0000 /min Resp rate 2020-03-25 08:41:07 16.0000 /min BP sys 2020-03-25 08:41:07 116.0000 mm[Hg] Body temperature 2020-03-25 08:41:07 97.9000 [degF] Weight 2020-03-25 08:41:07 152.8000 [lb_av] BMI 2020-03-04 09:30:29 24.7600 BP acharya 2020-03-04 09:30:29 90.0000 mm[Hg] Bdy height 2020-03-04 09:30:29 66.0000 [in_i] SaO2% BldA PulseOx 2020-03-04 09:30:29 98.0000 % Heart rate 2020-03-04 09:30:29 89.0000 /min Resp rate 2020-03-04 09:30:29 16.0000 /min BP sys 2020-03-04 09:30:29 138.0000 mm[Hg] Body temperature 2020-03-04 09:30:29 98.1000 [degF] Weight 2020-03-04 09:30:29 153.4000 [lb_av] Bdy height 2020-02-12 09:27:26 66.0000 [in_i] SaO2% BldA PulseOx 2020-02-12 09:27:26 99.0000 % Heart rate 2020-02-12 09:27:26 92.0000 /min Resp rate 2020-02-12 09:27:26 18.0000 /min BP sys 2020-02-12 09:27:26 145.0000 mm[Hg] Body temperature 2020-02-12 09:27:26 97.1000 [degF] Weight 2020-02-12 09:27:26 151.0000 [lb_av] BMI 2020-02-12 09:27:26 24.3700 BP acharya 2020-02-12 09:27:26 96.0000 mm[Hg] BMI 2020-01-15 09:06:06 24.2800 BP acharya 2020-01-15 09:06:06 87.0000 mm[Hg] Bdy height 2020-01-15 09:06:06 66.0000 [in_i] SaO2% BldA PulseOx 2020-01-15 09:06:06 99.0000 % Heart rate 2020-01-15 09:06:06 85.0000 /min Resp rate 2020-01-15 09:06:06 18.0000 /min BP sys 2020-01-15 09:06:06 127.0000 mm[Hg] Body temperature 2020-01-15 09:06:06 98.0000 [degF] Weight 2020-01-15 09:06:06 150.4000 [lb_av] BMI 2019-12-25 09:02:19 24.0200 BP acharya 2019-12-25 09:02:19 82.0000 mm[Hg] Bdy height 2019-12-25 09:02:19 66.0000 [in_i] SaO2% BldA PulseOx 2019-12-25 09:02:19 98.0000 % Heart rate 2019-12-25 09:02:19 86.0000 /min Resp rate 2019-12-25 09:02:19 18.0000 /min BP sys 2019-12-25 09:02:19 135.0000 mm[Hg] Body temperature 2019-12-25 09:02:19 98.0000 [degF] Weight 2019-12-25 09:02:19 148.8000 [lb_av] BMI 2019-12-14 10:46:18 22.9500 BP acharya 2019-12-14 10:46:18 88.0000 mm[Hg] Bdy height 2019-12-14 10:46:18 66.0000 [in_i] SaO2% BldA PulseOx 2019-12-14 10:46:18 98.0000 % Heart rate 2019-12-14 10:46:18 91.0000 /min Resp rate 2019-12-14 10:46:18 16.0000 /min BP sys 2019-12-14 10:46:18 135.0000 mm[Hg] Body temperature 2019-12-14 10:46:18 97.6000 [degF] Weight 2019-12-14 10:46:18 142.2000 [lb_av] BMI 2019-12-04 08:55:23 24.0200 BP acharya 2019-12-04 08:55:23 89.0000 mm[Hg] Bdy height 2019-12-04 08:55:23 66.0000 [in_i] SaO2% BldA PulseOx 2019-12-04 08:55:23 99.0000 % Heart rate 2019-12-04 08:55:23 86.0000 /min Resp rate 2019-12-04 08:55:23 16.0000 /min BP sys 2019-12-04 08:55:23 142.0000 mm[Hg] Body temperature 2019-12-04 08:55:23 97.5000 [degF] Weight 2019-12-04 08:55:23 148.8000 [lb_av] BMI 2019-11-16 12:31:28 23.0800 BP acharya 2019-11-16 12:31:28 96.0000 mm[Hg] Bdy height 2019-11-16 12:31:28 66.0000 [in_i] SaO2% BldA PulseOx 2019-11-16 12:31:28 99.0000 % Heart rate 2019-11-16 12:31:28 115.0000 /min Resp rate 2019-11-16 12:31:28 16.0000 /min BP sys 2019-11-16 12:31:28 157.0000 mm[Hg] Body temperature 2019-11-16 12:31:28 99.4000 [degF] Weight 2019-11-16 12:31:28 143.0000 [lb_av] SYSTOLIC BLOOD PRESSURE 2018-08-24 10:56:00 136 mm[Hg] DIASTOLIC BLOOD PRESSURE 2018-08-24 10:56:00 86 mm[Hg] HEART RATE 2018-08-24 10:56:00 93 /min HEIGHT 2018-08-24 10:56:00 167.6 cm WEIGHT 2018-08-24 10:56:00 76.613 kg Hospital Discharge Instructions Patient Instructions Cheryle Farfan CMA - 06/04/2020 11:00 AM [facility] Triage Line Contact Information [facility] Triage Line is available Wednesday - Wednesday from 8 am - 5 pm at . There is always someone you can reach after 6 pm, on the weekend or during holidays. If you call the [facility] at , he or she will ask you for your provider's nameand your name. They will then contact your provider or the covering provider who can then discuss your concerns with you. For emergencies, please call 911 or report to the closest Emergency Department.Clinical Notes on My Chart: Progress notes documented by your healthcare team will now be available on the my chart portal. We believe that patients should be a part of the healthcare team. We encourage you to review notes after visits and in preparation for upcoming appointments. This provides the opportunity to review recommendations as well as to prepare questions for you healthcare team to address during your next visit. If you identify discrepancies in the documentation or have specific questions related to the notes, please bring them to your next scheduled visit to discuss with your physician, nurse practitioner, or physician orthotics assistant. With increased transparency, our hope is that we create more trust, better communication, more shared decision-making, and increased satisfaction. Please be aware that these notes will not be discussed over the phone or through My Chart messages. They willbe discussed only at your next office visit with your provider. documented in this encounter Patient Instructions Carol Hughes RN - 05/16/2020 3:45 PM EDT Light activity for 4-6 weeks after surgery to allow incisions heal - no strenuous activity - no lifting over 10lbs Daily range of motion exercises to arms as instructed by your doctor Walking daily is good for 15 minutes at a time 3-4 times a day and increase as tolerated Wear soft bra or camisole daily as instructed by your doctor. Please do not wear underwire bra for at least 2 months after surgery May shower daily and gently wash with soap and water, then pat dry. Please do not apply lotions or ointments to incisions unless instructed by your doctor Driving permitted by your provider - do not drive while taking narcotics May begin scar treatment 6 weeks from surgery by using cocoa butter, vitamin E, or mederma daily to scar.Please call the clinic triage nurse during normal business hours Wednesday - Wednesday from 8:30-4:00 withany questions or concerns at [phone] Please call [phone] to schedule or change appointments Our fax number is [phone] Call [phone] after hours (after 4pm Wednesday thru Wednesday) and on weekends and ask for the plastic resident carbon coater machine operator. documented in this encounterPatient Instructions Cheryle Farfan CMA - 05/10/2020 1:00 PM EDT Please call with any questions or concerns prior to your next scheduled appointment. Contact Information Ayse Mccollum MD and Nahed Aceves NP Triage Nurse: [phone] Wednesday-Wednesday 8:00am-5pm * Prescription Refill Requests * Medication Authorizations * Test Results * Symptoms or Side Effects Please be prepared to provide your name, date of , medical record number, and doctors name, along with a brief description of your question or non-urgent problem. Paging Range Rider: If you have an urgent problem or have a question or concern after 6pm, during the weekend, or on a holiday, please call this number and ask the heating operators engineer to page the surgical resi dent carbon coater machine operator. Appointment Hub: Wednesday-Wednesday 7:30am-4:30pm If you have need to make changes to your appointments or have questions or concerns regarding your appointments, please contactthe appointment hub. Disbility / FMLA Paperwork: Please allow a 2 week turnaround time for all paperwork submitted. Insurance Concerns Financial Care Counselor Tel: Highlights from your Breast Team Please note that when scheduling your follow-up appointments in the high risk clinic, you may be seen by any of our excellent providers! We have openings on Mondays from Noon to 4pm and from 8:30am to 4:30pm. If you ever need to change your appointment, please feel free to contact our scheduling HUB at [phone] and select option #2. Do you feel like you need more time during your visits to discuss your concerns? Have you ever wondered how other high risk patients handle these visits and concerns? Consider attending a GROUP VISIT for our high risk patients! The [facility] ([facility]) offers group visits for women in our high risk clinic! Wehope you will join the BRAC Team for one of our weekly friendly and informal group visits, which areavailable for free as a part of your clinic visit at the [facility]. Discussion topics will be directed by your requests and focus on topics such as how risk is calculated, breast surveillance, risk management options, and dealing with anxiety often associated with high risk status. These sessions are held on from Noon to 1pm and are led by one of our nurse practitioners (Umm Schreiber DNP). Light refreshments will be provided. Please note, these group sessions are currently ON HOLD due to COVID- 19, but we plan to resume them in the fall. In addition, we offer a free monthly virtual webinar. During both the webinar and the in-person weekly sessions, we will continue toprovide additional breast-related education, support, and healthcare in these fun and interactive group visit formats. Discussion topics will be directed by your requests and will include featured guest speakers from various [facility] (see tentative schedule below). Practical solutions will be offered with invited special guests such as hyperion administrator, radiologists, genetic counselors, exercise physiologists, and other specialists. These online webinars will resume on Wednesday, 2019. For more information or to sign up for these interactive and focused group visits, please email [email or web address] or call our office at [phone]. When contacting us, please provideyour name, [facility] number (if known), and date of . If you are planning to join thewebinar (online only) you do not need to preregister. Please use the link below to join. You will need zoom software, which can be downloaded easily to your phone, laptop, or desktop in a few minutes. Instructions will automatically appear when you click the link to join. This link also provides a phone number for dial in, if you prefer or are not at your desk. Live Group Telehealth Webinars 12-1pm ET : February - April 2020 ~ Break for the Summer May 14, 2020 with focus on Breast Reconstruction June 18, 2020 with focus on Breast Research July 16, 2020 (topic TBD) August 13, 2020 (topic TBD)Wishing you good health! Your [facility] -Umm Schreiber DNP -Nahed Aceves NP -MD Celeste Phelps is inviting you to a scheduled Zoom meeting. Topic: Breast Health Webinar withJeremy Schreiber NP Time: Eastern Time ([place] and [place]) Every month on the First Wednesday Please download and import the following [employer] (.ics) files to your calendar system. Monthly: [email or web address] Join Zoom Meeting [email or web address] Meeting ID: [id number] One tap mobile [phone],,[phone]# [place] ([place] [phone],,[phone]# [place] ([place] Dial by your location [phone] ([place]) [phone] [place] ([place] [phone] ([place]) Meeting ID: [id number] Find your local number: [email or web address] Upcoming Community Events Join [facility] and the [facility] in our free annual community symposium, "What's best for breasts?", which will be held virtually (online only) on Monday, June 01, 2020! For more information, visit our website at: [email or web address] To register for the event, go to the registration website at: [email or web address] Join the [facility] Breast Team and the[facility] Cancer Society at the Making Strides Against Breast Cancer event in [place] on Monday, May 25, 2020! For more information, visit the [employer] website at: http://www.[facility].ge.org/site/TR?fr_id=8374&pg=entry Join the [facility] Breast Team and the [employer] at the Making Strides Against Breast Cancer event in [place] on Monday, June 29, 2020! For more information, visit the ACS website at: https://secure.acsVideostir.org/site/STR?pg=entry&fr_id=39285 Women's Health Awareness is a FREE annual women's wellness conference offered since 2014. This free event is open to ALL women in the [place] and surrounding region. It provides health awareness, education, information, resources, and on-site health screenings. This year's virtual event will be held in June 2020. For more information, visit the A website at: https://tools.niehs.nih.gov/conference/womenshealth_2020/index.cfm For more information about all our community outreach, visit our website at: [email or web address]/ Patient Education Exercising After a Mastectomy: Care Instructions Your Care Instructions During a mastectomy, your doctor removed your breast andmay have removed some of the lymph nodes from under your arm. You may feel some pain going down yourarm. Your shoulder and arm may be stiff and hard to move. You may also have some loss of feeling there. Take good care of your arm on the side of your surgery. Your doctor or physical therapist can teach you arm exercises that will let you move your arm as you always have. But be careful not to overuse your arm. For example, do not lift anything heavy with your arm until your doctor says it is okay. The basic exercises described here will help you start moving your arm. Follow-up care is a ochoa part of your treatment and safety. Be sure to make and go to all appointments, and call your doctor if you are having problems. It's also a good idea to know your test results and keep a list of the medicines you take. Before you start to exercise Do not start to exercise until your doctor says it is okay. If you are not sure how to do an exercise, do not start it until your doctor or physical therapistshows you exactly how to do it. Stop exercising if your arm or chest area hurts or begins to swell. Talk with your doctor about your symptoms. Also call your doctor if you have problems doing an exercise or it hurts. Wear loose-fitting clothing while you do your exercises. Use your arm for your usual activities, such as brushing your teeth and hair. How to do shoulder relaxation exercises How to do shoulder relaxation exercises 1. Try one or both of these exercises to relax your shoulders: Shoulder shrugs: While you sit or stand, lift your shoulders up toward your ears. Relax your shoulders, and let them drop to their usual position. Shoulder rolls: While you sit or stand, roll your shoulders from front to back and up to down. How to do a shoulder blade stretch 1. While you sit, stretch your arms behind your back, and grasp your hands together. 2. Hold for 5 seconds. 3. Repeat 2 or 3 times. How to do an overhead reach 1. While you sit or stand, clasp your hands together and extend your elbows. 2. Lift your arms up toward your head. 3. Hold for 3 seconds. 4. Repeat 2 or 3 times. How to do a shoulder pinch 1. While you sit or stand, clasp your hands behind your head. 2. Bring your elbows back, and squeeze your shoulder blades together. Keep your shoulders back and down. 3. Hold for 5 seconds. 4. Repeat 2 or 3 times. How to do a wall climb 1. While you stand, face a wall, with your hands on the wall. 2. Walk your fingers up the wall until you feel a stretch. 3. Hold that position for 5 seconds. 4. Slowly walk your fingers back down to the starting position. 5. Repeat 2 or 3 times. How to do elbow circles 1. While you sit or stand, put your right hand on your right shoulder, and your left hand on your left shoulder. 2. Raise your elbows until you feel a stretch. 3. Make circles with your elbows. Start small and then make larger circles. 4. Change direction with your circles.5. Repeat 2 or 3 times. Where can you learn more? Log in to your [employer] account at [email or web address] and click on top menu option "Health" then select "Search Medical Library". Enter X573 in the search box and click the magnify glass to learn more about "Exercising After a Mastectomy: Care Instructions." Current as of: May 04, 2019Content Version: 12.5 [employer]. Care instructions adapted under license by your healthcare pro fessional. If you have questions about a medical condition or this instruction, always ask your healthcare professional. [employer] disclaims any warranty or liability for your use of this information. documented in this encounterPatient Instructions Cydney Aceves CMA - 05/03/2020 2:30 PM Roland Sheikh's office number is [phone] Please call the clinic triage nurse during normal business hours Wednesday - Wednesday from 8:30-4:00 with any questions or concerns at [phone] Please call [phone] to schedule or change appo intments Our fax number is [phone] Call [phone] after hours (after 4pm Wednesday thru Wednesday)and on weekends and ask for the plastic resident carbon coater machine operator. Continue to empty and record drain output.Use abdominal pads as needed for cushion. 3:04 PM EDT documented in this encounterPatient Instructions Carol Hughes RN - 04/23/2020 8:45 AM Roland Sheikh's office number is [phone] Please call the clinic triage nurse during normal business hours Wednesday - Wednesday from 8:30-4:00 with any questions or concerns at [phone] Please call [phone] to schedule or change appointments Our fax number is [phone] Call [phone] after hours (after 4pm Wednesday thru Wednesday) and on weekends and ask for the plastic resident carbon coater machine operator. - [facility] at [facility]. You will go home tomorrow - No eating or drinking (no gum or hard candy)after midnight the night before surgery. You may have clear liquids (water) up to 2 hours before youarrive at the hospital - No Ibuprofen or herbal supplements 1-2 weeks prior to surgery (including aspirin, Aleve, Naproxen, Vitamin E supplements, Fish Oil, Green tea) - - If you are receiving Zolidex i njections and are scheduled for any abdominal surgery - please avoid using the abdomen as an injection site 2 weeks prior to surgery - Please stop all hormone medications 4 weeks prior to surgery and 4weeks after surgery ( control pills, estrogen, estradiol, progesterone, Nuvaring) - May have tylenol prior to surgery - Please shower the evening before and morning of your surgery using the soap provided to you in pre-op screening or use a anti-bacterial soap (Dial or Safeguard). No perfume, lotions, makeup, deodorant, hairspray, or hair gels - No drinking alcohol 24 hours before surgery - NO smoking prior to surgery - If you develop a cold, fever, or respiratory problem in the days prior to your scheduled surgery - please call your physician's office - You must have a responsible adult wheat combine driver the day of surgery. After surgery: - Light activity. Incision takes 6 weeks to fully heal - Walkingdaily is recommended and per surgeon's orders. Ambulating daily helps with preventing blood clots, breathing problems, and gets your bowels moving. - Good nutrition and good protein intake is recommended - Pain control - please ask your nurse for pain medicine while in the hospital as needed - Blood Clot prevention - Ambulating daily helps prevent blood clots - Gum chewing - Chewing gum after surgeryhelps wake up your stomach after surgery - may chew gum 2-3 times a day - Deep breathing - You will be shown how to use an incentive spirometer which helps you take deep breaths every 1-2 hours while awake and helps prevent pneumonia - You will have drains when you wake up from surgery. Please empty and record the output daily and bring record to your post-op visit. - Showering after surgery will be up to your surgeon usually 2-3 days after surgery. Wash incision daily with soap and water, then pat dry. Please do not apply ointments or creams to incision unless instructed by your surgeon - Please do not drive until instructed by your surgeon. Please DO NOT drive while taking narcotics(pain meds) -No swimming or tub baths for 6 weeks from surgery Drain Care: Continue emptying and recording drain output daily. Drain output needs to be less than 30ml in a 24 hour period for 2 consecutive days per drain to have drain removed. Light activity for 4-6 weeks after surgery to allow incisions heal - no strenuous activity - no lifting over 10lbs Daily range of motion exercises to arms as instructed by your doctor Walking daily is good for 15 minutes at a time 3-4 times a day and increase as tolerated Wear soft bra or camisole daily as instructed by your doctor. Please do not wear underwire bra for at least 2 months after surgery May shower daily and gently wash with soap and water, then pat dry. Please do not apply lotions or ointments to incisions unless instructed by your doctor Driving permitted by your provider - do not drive while taking narcotics May begin scar treatment 6 weeks from surgery by using cocoa butter, vitamin E, or mederma daily to scar. Please call the clinic triage nurse during normal business hours Wednesday - Wednesday from 8:30-4:00 with any questions or concerns at [phone] call [phone] to schedule or change appointments Our fax number is [phone] Call [phone] after hours (after 4pm Wednesday thru Wednesday) and on weekends and ask for the plastic resident carbon coater machine operator. documented in this encounterPatient Instructions Marisela Manning RN - 04/22/2020 11:25 AM EDT COVID-19 Infection With Mild or No Symptoms-[facility] Patient Education Governance [place] approved December 2019 (revised in January 2020) COVID-19 Infection With Mild or No Symptoms-[facility] Developed and approved specifically for [facility] patients and their loved ones. Not intended for distribution or use by individuals outside of [facility] documented in this encounterPatient Instructions Sherry Sanford PA - 04/09/2020 10:30 AM EDT Medication instructions prior to procedure: Medication Sig INSTRUCTI ONS ALPRAZolam (XANAX) 0.5 MG tablet Take 0.5 mg by mouth 3 (three) times a day TAKE day of procedure ascorbic acid/vitamin E/biotin (HAIR, SKIN, NAILS WITH BIOTIN ORAL) Take 3 capsules by mouth once daily STOP taking 7 days prior to procedure cetirizine (ZYRTEC) 10 MG tablet Take 10 mg bymouth once daily TAKE day of procedure, if needed fluticasone propionate (FLONASE) 50 mcg/actuation nasal spray Place 2 sprays into both nostrils once daily TAKE day of procedure omeprazole (PRILOSEC) [address] capsule Take 40 mg by mouth once daily TAKE day of procedure pediatric multivitamin (FLINTSTONES/EXTRA C) chewable tablet Take 1 tablet by mouth once daily STOP taking 7 days prior to procedure penicillin v potassium 500 MG tablet Take 500 mg by mouth every 6 (six) hours For 10days Will finish prior to surgery sertraline (ZOLOFT) 100 MG tablet Take 150 mg by mouth once daily TAKE day of procedure VITAMIN D3 ORAL Take 5,000 Units by mouth once daily DO NOT TAKE day ofprocedure documented in this encounter
== END ==
LOC: WI 10:00
PROVIDERS: ATTEND Nurse Practitioner Family
DX: C50.411 Malignant neoplasm of upper-outer quadrant of right female breast (principal); N64.52 Nipple discharge
CPT/HCPCS: 76642; 77065